=== PATIENT | female | born 1935 | race African-American/Black ===

== ENCOUNTER → 2017-04-20 | Outpatient (CLI) | payer OTHER, MEDICARE | LOC: FIMAGING 04-19 17:30 | PROVIDERS: ATTEND Internal Medicine | DX: Z86.73 Personal history of transient ischemic attack (TIA), and cerebral infarction without residual deficits (principal); D32.0 Benign neoplasm of cerebral meninges ==

== ENCOUNTER → 2017-05-25 | Outpatient (CLI) | payer OTHER, MEDICARE ==
[~2017-05-25] MED LIST: IOPAMIDOL (ISOVUE-300) 100 ML BTL ONE
== END ==
LOC: FIMAGING 10:42
PROVIDERS: ATTEND Internal Medicine
DX: K76.89 Other specified diseases of liver (principal); N28.89 Other specified disorders of kidney and ureter; M51.37 Other intervertebral disc degeneration, lumbosacral region; M46.96 Unspecified inflammatory spondylopathy, lumbar region; Z90.711 Acquired absence of uterus with remaining cervical stump
CPT/HCPCS: 74177; Q9967

== ENCOUNTER 2017-05-30 06:36 | Outpatient (CLI) | payer OTHER, MEDICARE ==
[2017-05-30] MEDS ORDERED: NS 1,000 ML IV SCH (08:15)
[2017-05-30 08:27] LABS: HEMATOCRIT 36.5 % (38.0-47.0)
[2017-05-30 08:28] LABS: INR 1.12 (0.83-1.16); PROTIME(PATIENT) 14.3 SEC (12.0-15.0)
[2017-05-30 08:29] LABS: APTT 31.6 SEC (23.0-38.0)
[2017-05-30] MEDS ORDERED: IOPAMIDOL (ISOVUE 370) 100 ML BTL IV ONE (08:32)
[2017-05-30] MEDS ORDERED: NALOXONE HCL 0.4 MG/ML INJ ONE (08:52)
[2017-05-30] MEDS ORDERED: FLUMAZENIL 0.5 MG/5 ML MDV IVP ONE (08:52)
[2017-05-30] MEDS ORDERED: fentaNYL 100 MCG/2 ML INJ ONE (08:52)
[2017-05-30] MEDS ORDERED: MIDAZOLAM 2 MG/2 ML VIAL ONE (08:52)
[2017-05-30 14:21] VITALS: BP 154/84; RESP 12; O2SAT 96
== END 2017-05-30 14:21 | disposition home or self-care (01) ==
LOC: FIMAGING 06:36
PROVIDERS: ATTEND Psychiatry & Neurology Neurology
PROC: 0F903ZZ Drainage of Liver, Percutaneous Approach (ICD-10-PCS; principal; 2017-05-30 11:28)
DX: K76.89 Other specified diseases of liver (principal); E04.1 Nontoxic single thyroid nodule; R51 Headache; R42 Dizziness and giddiness; R29.818 Other symptoms and signs involving the nervous system
CPT/HCPCS: 10022; 70496; 70498; 88161; J2250; J3010; Q9967; J2310

== ENCOUNTER → 2017-08-06 | Outpatient (CLI) | payer OTHER, MEDICARE | LOC: FIMAGING 13:08 | PROVIDERS: ATTEND Internal Medicine | DX: J98.9 Respiratory disorder, unspecified (principal); R05 Cough; K76.89 Other specified diseases of liver; N28.9 Disorder of kidney and ureter, unspecified ==

== ENCOUNTER 2017-08-08 08:16 | Day surgery (SDC) | payer OTHER, MEDICARE ==
[2017-08-08] MEDS ORDERED: ONDANSETRON 4 MG/2 ML VIAL ONE (08:40)
[2017-08-08] MEDS ORDERED: FLUMAZENIL 0.5 MG/5 ML MDV IVP ONE (08:40)
[2017-08-08] MEDS ORDERED: MIDAZOLAM 2 MG/2 ML VIAL ONE (08:40)
[2017-08-08] MEDS ORDERED: NALOXONE HCL 0.4 MG/ML INJ ONE (08:40)
[2017-08-08] MEDS ORDERED: fentaNYL 100 MCG/2 ML INJ ONE (08:41)
[2017-08-08 09:08] LABS: HEMATOCRIT 29.9 % (38.0-47.0)
[2017-08-08 09:17] LABS: INR 1.15 (0.83-1.16); PROTIME(PATIENT) 14.6 SEC (12.0-15.0)
[2017-08-08 09:18] LABS: APTT 27.5 SEC (23.0-38.0)
[2017-08-08 14:15] VITALS: BP 128/76; RESP 1; O2SAT 96
== END 2017-08-08 15:35 | disposition home or self-care (01) ==
LOC: FIMAGING 08:16
PROVIDERS: ATTEND Internal Medicine
PROC: 0F9030Z Drainage of Liver with Drainage Device, Percutaneous Approach (ICD-10-PCS; principal; 2017-08-08 12:28)
DX: K76.89 Other specified diseases of liver (principal)
CPT/HCPCS: J2250; J2310; J2405; J3010

== ENCOUNTER 2017-08-10 13:43 | Inpatient (IN) | payer OTHER, MEDICARE ==
[2017-08-10] MEDS ORDERED: IOPAMIDOL (ISOVUE 370) 100 ML BTL IV ONE (14:19)
[2017-08-10] MEDS ORDERED: ALTEPLASE 100 MG/100 ML VIAL IV ONE ×3 (14:26→14:50)
--- NOTE | 2017-08-10 14:31 | EDPHY ---
H & P Time Seen by Provider: 08/10/17 13:56 HPI/ROS: CHIEF COMPLAINT: Stroke alert HISTORY OF PRESENT ILLNESS: This is an 81-year-old female presents emergency department with an onset of left-sided facial droop, left arm and left leg weakness as well as left slight and neglect which began around 12 30. 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 Just before 12:30 p.m., the patient fell out of her chair. The fall was unwitnessed. There was no loss of consciousness or direct head trauma. Patient was helped back up and shortly thereafter deficits were noted. Patient does have a history of 2 prior episodes of "mini strokes "according to the family. Of note, she recently had a cyst on her liver drained with ultrasound guidance. This was performed 2 days ago here at [facility]. Patient reports a mild frontal headache. She denies chest pain or shortness of breath. She denies abdominal pain. No reports of fevers, chills, vomiting, diarrhea, urinary complaints, or lightheadedness. REVIEW OF SYSTEMS: Limited secondary to patient's clinical condition. Please see HPI. PAST MEDICAL HISTORY: Liver cyst, TIA's SOCIAL HISTORY: Nonsmoker VITAL SIGNS Reviewed by me. GENERAL: Elderly female, obvious left-sided neglect. Able to answer simple questions. Alert, oriented x3. HEENT: Atraumatic. Eyes: PERRL, rightward gaze preference, no nystagmus. Left-sided facial droop. No icterus. No injection. Mouth: moist mucous membranes. Neck: No meningitis. LUNGS: Clear to auscultation bilaterally, no wheezes, rhonchi or rales. CARDIAC: Slightly irregular, nerves murmurs or gallops. ABDOMEN: Soft, nontender, nondistended, bowel sounds normal. BACK: No CVA tenderness. EXTREMITIES: No trauma. No edema. Left upper extremity is held in a flexed position, flexed at the elbow as well as the wrist. NEURO: Alert and oriented, Motor strength decrease in the left upper extremity and left lower extremity with inability to hold position. Sensation intact to light touch. SKIN: Warm and dry, no rash. PSYCHIATRIC: Normal mentation, no agitation. - Medical/Surgical History Hx Diabetes: No - Social History Smoking Status: Never smoked Constitutional: Initial Vital Signs Temperature (C) 36.7 C 08/10/17 14:40 Heart Rate 80 08/10/17 14:40 Respiratory Rate 14 08/10/17 14:40 Blood Pressure 143/88 H 08/10/17 14:40 O2 Sat (%) 100 08/10/17 14:40 O2 (L/minute) 2 Allergies/Adverse Reactions: clopidogrel [Clopidogrel] Allergy (Unknown, Unverified 01/06/10 20:01) Unknown Penicillins Allergy (Unknown, Unverified 01/06/10 20:01) Unknown prednisone [Prednisone] Allergy (Unknown, Unverified 01/06/10 19:59) Unknown Home Medications: Medication Instructions Recorded Aspirin [Aspirin 81mg (*)] 81 mg PO DAILY 08/10/17 Herbals/Supplements -Info Only 1 ea PO DAILY 08/10/17 Levothyroxine [Synthroid 75 mcg 75 mcg PO DAILY06 08/10/17 (*)] Multivitamins [Multivitamin (*)] 1 each PO DAILY 08/10/17 Medical Decision Making - Diagnostics Imaging Results: Imaging Impressions Head CTA 08/10/17 00:00 Impression: 1. Partially occlusive clot at the distal M1 on the right. This would correlate to the clinical presentation. 2. There is a trickle of flow through the small distal M1 segment amongst the abnormality. Differential is partially occlusive clot or partially recanalizing clot. 3. From a recent liver cyst drainage standpoint, I believe patient is a TPA candidate. Given the appearance of this segment which is very subtle, nonocclusive, and very focal, I do not think interventional radiology will be needed. 4. 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 When the initial source images were looked at live as the images passed through the CT scanner screen during scanning, no large scale abnormalities were seen. This was preliminarily discussed with Dr. Luis verbally at 2:15 PM, so that IV TPA mix can be started. Patient's studies were ordered as emergent, not under patient's name. The source images were therefore not able to be sent to PACS until all of the reformatted images were done, and the entire study was transferred to patient's correct name. This was accomplished at 2:25 PM. This in essence delayed review of source images by 10 minutes. Final report of the above findings was discussed with Dr. Luis, after all the source images and reformats were reviewed on PACS workstation, at 2:[address] Luis and [facility] were on the phone simultaneously, both aware of the above findings. It was agreed upon that patient will get IV TPA, and that transfer was not needed. Neck CTA 08/10/17 00:00 Impression: Normal. Findings and recommendations discussed with Crissy Luis MD at 1415 hour, . Final interpretation was not changed once the source images and reformatted images were reviewed. Final report concurs with initial preliminary interpretation. Note: All stenoses are calculated using NASCET Criteria. Head CT 08/10/17 14:05 Impression: No definite focal acute abnormality. No intracranial hemorrhage. Findings and recommendations discussed with Crissy Luis MD at 2:05 PM, 2016. Final report concurs with initial preliminary interpretation. Chest X-Ray 08/10/17 14:30 Impression: 1. Persistent moderate elevation of the right hemidiaphragm with some adjacent compressive atelectatic change at the right lung base. Imaging: Discussed imaging studies w/ call center manager Radiologist, I viewed and interpreted images myself ED Course/Re-evaluation: 81-year-old female presenting with abrupt onset of left-sided deficits. Stroke alert was called. Patient's course was discussed initially with Dr. Randolph, from [facility]. Patient's head CT was negative for any acute bleed. She has recently had a interventional radiology procedure with ultrasound guidance and drainage of cyst. CTA is were ordered. On return from CT the patient was examined by [facility]. Dr. Randolph recommends tPA. The family is in agreement. CTA is demonstrate a potential small clot the distal vessels, M2-M3 branches that is not occlusive. On discussions between Dr. Randolph and the family, the family would not wish to proceed with intra-arterial thrombectomy or transfer to [facility]. On review of the CTA with Dr. Gamble, recommendation for intravenous tPA was made. TPA was administered via the ED stroke tPA order set. Patient's course was discussed with the hospitalist service, Dr. Lovelace. Dr. Tho Martinez from Neurology is also aware. Differential Diagnosis: Differential diagnoses the patient's presenting complaints was considered including but not limited to intracranial injury, TIA, ischemic cerebrovascular accident, hemorrhagic cerebrovascular accident, hypoglycemia, complex migraine , metastases, tumor, seizure, or electrolyte abnormality Consult/Admit Bed Type: ICU, Dr Lovelace Critical Care Time: Critical care time spent by Dr. Toby rodgers exclusively with this patient was 35 minutes, exclusive of PA time and exclusive of procedures. The organ system at risk was neurologic and I the consult with [facility], consulted with Radiology, administered tPA at the recommendation for of Neurology, and admitted to the ICU under hospitalist service to prevent worsening of the patients condition. Critical care time included obtaining history, performing a physical exam, bedside monitoring of interventions, collecting and interpreting tests and discussion with consultants but not including time spent performing procedures. - Data Points Laboratory Results: Laboratory Results 08/10/17 14:00 08/10/17 14:00 08/10/17 08/10/17 08/10/17 14:00 14:00 14:00 WBC 5.98 10^3/uL 10^3/uL (3.80-9.50) RBC 3.88 10^6/uL L 10^6/uL (4.18-5.33) Hgb 10.5 g/dL L g/dL (12.6-16.3) POC Hgb Hct 33.7 % L % (38.0-47.0) POC Hct MCV 86.9 fL fL (81.5-99.8) MCH 27.1 pg L pg (27.9-34.1) MCHC 31.2 g/dL L g/dL (32.4-36.7) RDW 13.2 % % (11.5-15.2) Plt Count 462 10^3/uL H 10^3/uL (150-400) MPV 9.2 fL fL (8.7-11.7) Neut % (Auto) 69.2 % % (39.3-74.2) Lymph % (Auto) 19.7 % % (15.0-45.0) [place] % (Auto) 8.4 % % (4.5-13.0) Eos % (Auto) 2.2 % % (0.6-7.6) Baso % (Auto) 0.2 % L % (0.3-1.7) Nucleat RBC Rel Count 0.0 % % (0.0-0.2) Absolute Neuts (auto) 4.14 10^3/uL 10^3/uL (1.70-6.50) Absolute Lymphs (auto) 1.18 10^3/uL 10^3/uL (1.00-3.00) Absolute Monos (auto) 0.50 10^3/uL 10^3/uL (0.30-0.80) Absolute Eos (auto) 0.13 10^3/uL 10^3/uL (0.03-0.40) Absolute Basos (auto) 0.01 10^3/uL L 10^3/uL (0.02-0.10) Absolute Nucleated RBC 0.00 10^3/uL 10^3/uL (0-0.01) Immature Gran % 0.3 % % (0.0-1.1) Immature Gran # 0.02 10^3/uL 10^3/uL (0.00-0.10) PT 14.9 SEC SEC (12.0-15.0) INR 1.17 H (0.83-1.16) POC Sodium Sodium 136 mEq/L mEq/L (134-144) POC Potassium Potassium 4.2 mEq/L mEq/L (3.5-5.2) POC Chloride Chloride 102 mEq/L mEq/L (97-110) Carbon Dioxide 24 mEq/l mEq/l (22-31) Anion Gap 10 mEq/L mEq/L (8-16) POC BUN BUN 13 mg/dL mg/dL (7-23) Creatinine 0.7 mg/dL mg/dL (0.6-1.0) POC Creatinine Estimated GFR > 60 Glucose 95 mg/dL mg/dL (70-100) POC Glucose Calcium 9.2 mg/dL mg/dL (8.5-10.4) 08/10/17 13:59 WBC RBC Hgb POC Hgb 11.9 gm/dL L gm/dL (12.6-16.3) Hct POC Hct 35 % L % (38-47) MCV MCH MCHC RDW Plt Count MPV Neut % (Auto) Lymph % (Auto) [place] % (Auto) Eos % (Auto) Baso % (Auto) Nucleat RBC Rel Count Absolute Neuts (auto) Absolute Lymphs (auto) Absolute Monos (auto) Absolute Eos (auto) Absolute Basos (auto) Absolute Nucleated RBC Immature Gran % Immature Gran # PT INR POC Sodium 138 mEq/L mEq/L (134-144) Sodium POC Potassium 3.8 mEq/L mEq/L (3.3-5.0) Potassium POC Chloride 103 mEq/L mEq/L (97-110) Chloride Carbon Dioxide Anion Gap POC BUN 12 mg/dL mg/dL (7-23) BUN Creatinine POC Creatinine 0.7 mg/dL mg/dL (0.6-1.0) Estimated GFR Glucose POC Glucose 101 mg/dL H mg/dL (70-100) Calcium Medications Given: Acetaminophen (Tylenol) 650 mg PO Q4 PRN PRN Reason: Pain, Mild/Fever, Can Take PO Stop: 02/06/18 18:22 Last Admin: 08/10/17 18:35 Dose: 650 mg Discontinued Medications Alteplase, Recombinant (Activase) 4.52348 mg 0.09 mg/kg (4.41664 mg) IV ONCE ONE PRN Reason: Protocol Stop: 08/10/17 14:51 Last Admin: 08/10/17 14:35 Dose: 4.21509 mg Alteplase, Recombinant (Activase) 40.88778 mg 0.81 mg/kg (40.75879 mg) IV ONCE ONE PRN Reason: Protocol Stop: 08/10/17 14:51 Last Admin: 08/10/17 14:35 Dose: 40.80550 mg Sodium Chloride (Ns) 50 mls @ 0 mls/hr IV EDNOW ONE PRN Reason: Per Protocol Stop: 08/10/17 14:51 Last Admin: 08/10/17 15:14 Dose: 50 mls Point of Care Test Results: 08/10/17 13:59 POC Sodium 138 POC Potassium 3.8 POC Chloride 103 POC BUN 12 POC Creatinine 0.7 POC Glucose 101 H Departure - Departure Disposition: [facility] Inpatient Acute Clinical Impression: Acute ischemic stroke, Received intravenous tissue plasminogen activator (t-PA ) in emergency department Condition: Serious
[2017-08-10 14:40] LABS: % IMMATURE GRANULYOCYTES 0.3 % (0.0-1.1); ABSOLUTE IMMATURE GRANULOCYTES 0.02 10^3/uL (0.00-0.10); ADD DIFF? NO; ADD MORPH? NO; ADD SCAN? NO; ATYPICAL LYMPHOCYTE FLAG 10 (0-99); FRAGMENT RBC FLAG 0 (0-99); HEMATOCRIT 33.7 % (38.0-47.0); HEMOGLOBIN 10.5 g/dL (12.6-16.3); LEFT SHIFT FLG 0 (0-99); LIPEMIA HEMOLYSIS FLAG 80 (0-99); MEAN CELL HEMOGLOBIN 27.1 pg (27.9-34.1); MEAN CELL HEMOGLOBIN CONCENTR. 31.2 g/dL (32.4-36.7); MEAN CELL VOLUME 86.9 fL (81.5-99.8); MEAN PLATELET VOLUME 9.2 fL (8.7-11.7); PLATELET CLUMPS FLAG 0 (0-99); PLATELET COUNT 462 10^3/uL (150-400); RED BLOOD CELL COUNT 3.88 10^6/uL (4.18-5.33); RED CELL DISTRIBUTION WIDTH 13.2 % (11.5-15.2)
[2017-08-10 14:47] LABS: ANION GAP 10 mEq/L (8-16); CALCIUM 9.2 mg/dL (8.5-10.4); CARBON DIOXIDE 24 mEq/l (22-31); CHLORIDE 102 mEq/L (97-110); CREATININE 0.7 mg/dL (0.6-1.0); GLOMERULAR FILTRATION RATE > 60; GLUCOSE 95 mg/dL (70-100); INR 1.17 (0.83-1.16); POTASSIUM 4.2 mEq/L (3.5-5.2); PROTIME(PATIENT) 14.9 SEC (12.0-15.0); SODIUM 136 mEq/L (134-144)
[2017-08-10] MEDS ORDERED: NS 50 ML IV ONE (14:50)
[2017-08-10] MEDS ORDERED: ALTEPLASE 1 MG/ML SYR IV ONE (14:50)
--- NOTE | 2017-08-10 14:57 | CPEKG ---
Heart Rate: 81 RR Interval: 741 P-R Interval: 144 QRSD Interval: 80 QT Interval: 412 QTC Interval: 479 P [place]: 65 QRS [place]: 78 T Wave [place]: -15 EKG Severity - BORDERLINE ECG - EKG Impression: SINUS RHYTHM EKG Impression: LOW VOLTAGE IN FRONTAL LEADS EKG Impression: BORDERLINE T ABNORMALITIES, INFERIOR LEADS Electronically Signed By: Jasmina Vela 10-Aug-2017 15:36:37
[2017-08-10] MEDS ORDERED: ONDANSETRON 4 MG/2 ML VIAL IVP PRN (18:23)
[2017-08-10] MEDS ORDERED: NS 1,000 ML IV SCH ×2 (18:30)
[2017-08-10] MEDS: ACETAMINOPHEN 325 MG TAB PO PRN (18:35)
--- NOTE | 2017-08-10 19:02 | GHP ---
[f rep st] HISTORY AND PHYSICAL DATE OF ADMISSION: 08/10/2017 CHIEF COMPLAINT: Left-sided weakness. HISTORY OF PRESENT ILLNESS: The patient is an 81-year-old female, who presented with left-sided weak ness. Symptom onset was 12:30 this afternoon. She was seen by her daughter just shortly prior to th at, and daughter was home with her when she suddenly fell out of a chair and had acute onset of left- sided weakness. Reportedly she did not hit her head but she did hit her lip and now has a little bit of a fat lip. She came to the emergency room within the time window and was noted to have a left-si ded facial droop, left arm and leg weakness, and a left-sided neglect. With consultation with [facility], tPA was administered and she is now being admitted to ICU. She is already showing a pr chris dramatic improvement of her left-sided weakness since tPA administration. She is otherwise with out complaint. PAST MEDICAL HISTORY: 1. Benign liver cyst, status post recurrent aspiration. She most recently had this last Sunday. 2. Transient ischemic attack. 3. Hypothyroidism. 4. Atrial fibrillation incidentally noted just prior to her liver cyst last Sunday. She has not y et been able follow up with Cardiology regarding this and continued on a daily aspirin. PAST SURGICAL HISTORY: Hysterectomy. MEDICATIONS: Please see computer record for full detailed list. ALLERGIES: Plavix, penicillin and prednisone. SOCIAL HISTORY: No smoking. No alcohol. She lives with her daughter. REVIEW OF SYSTEMS: Complete review of systems obtained. Review of systems negative on constitutiona l, HEENT, GI, pulmonary, cardiovascular, , hematology, skin, muscular, endocrine, psych except for positives as noted in HPI. FAMILY HISTORY: Reviewed, noncontributory to presenting complaint. PHYSICAL EXAMINATION: GENERAL: Well-developed, well-nourished female in no acute distress. VITAL S IGNS: Temperature is 36.8, pulse 82, blood pressure 135/80, saturating 100% on 2 L. HEENT: Eyes: N ormal conjunctivae. Pupils react light. ENT: Normal ears and nose. Hearing intact. Normal teeth. Her lip is swollen, right upper, due to trauma when she fell out of the chair. Oropharynx moist. NEC K: Trachea midline. No thyromegaly. CHEST: Normal effort. LUNGS: Clear to auscultation bilaterall y. CARDIOVASCULAR: Regular rhythm. No murmur. No extremity edema. ABDOMEN: Soft, nontender. No h epatosplenomegaly. SKIN: Warm, dry, intact. No rash. MUSCULOSKELETAL: No cyanosis or clubbing. Strength is reduced on the left side but improving since initial exam. She has a significant ongoing left-sided neglect. Her speech is still slurred with an aphasia. Cranial nerves otherwise intact. PSYCH: Alert and oriented x3. Normal affect. Normal judgment and insight. Normal memory. LABORATORY DATA: White count 5.98, hematocrit 33.7, platelets 462. Sodium 136, potassium 4.2, chlor marlene 102, bicarb 24, BUN 13, creatinine 0.7, glucose 95. INR is 1.17. IMAGING: EKG, reviewed by me, my personal interpretation is normal sinus rhythm. Diffuse T-wave inv ersions. Chest x-ray shows a persistent right hemidiaphragm elevation. This case was discussed pers onally with Dr. Crissy Luis of the emergency room, and she [facility]. ASSESSMENT/PLAN: 1. Acute stroke, status post tPA. Her neuro exam is improving. We will continue to monitor her in t intensive care unit with serial neuro checks. Recheck head CT is scheduled for the morning. Will check an echocardiogram and a lipid panel. 2. Atrial fibrillation. It is a likely embolic source of her stroke. Unfortunately, this atrial fi brillation was just recently identified prior to her recent procedure and she had not yet been able t o follow up with Cardiology or primary care regarding anticoagulation. She continues on a daily aspi rin. At this point, we do not see any rapid ventricular response. Eventually she will need anticoag ulation for stroke prevention but first we need to get her through this acute period. 3. Liver cyst, status post recurrent cyst aspiration. This is a benign fluid per previous pathology. Will follow liver function tests. Will monitor for bleeding at the puncture site. CODE STATUS: Full. ADMISSION STATUS: Will admit to inpatient. Greater than 2 midnights will be required given severity on presentation. DEEP VENOUS THROMBOSIS PROPHYLAXIS: She just got tPA, so no pharmacologic prophylaxis at this time. /[id number]/MODL
[2017-08-11 04:23] LABS: % IMMATURE GRANULYOCYTES 0.3 % (0.0-1.1); ABSOLUTE IMMATURE GRANULOCYTES 0.02 10^3/uL (0.00-0.10); ADD DIFF? NO; ADD MORPH? NO; ADD SCAN? NO; ATYPICAL LYMPHOCYTE FLAG 0 (0-99); FRAGMENT RBC FLAG 0 (0-99); HEMATOCRIT 29.3 % (38.0-47.0); HEMOGLOBIN 9.2 g/dL (12.6-16.3); LEFT SHIFT FLG 0 (0-99); LIPEMIA HEMOLYSIS FLAG 80 (0-99); MEAN CELL HEMOGLOBIN 27.2 pg (27.9-34.1); MEAN CELL HEMOGLOBIN CONCENTR. 31.4 g/dL (32.4-36.7); MEAN CELL VOLUME 86.7 fL (81.5-99.8); MEAN PLATELET VOLUME 9.2 fL (8.7-11.7); PLATELET CLUMPS FLAG 0 (0-99); PLATELET COUNT 399 10^3/uL (150-400); RED BLOOD CELL COUNT 3.38 10^6/uL (4.18-5.33); RED CELL DISTRIBUTION WIDTH 13.2 % (11.5-15.2)
[2017-08-11 05:07] LABS: ALANINE AMINOTRANSFERASE 36 IU/L (9-52); ALBUMIN 2.6 g/dL (3.5-5.0); ALKALINE PHOSPHATASE 113 IU/L (38-126); ANION GAP 7 mEq/L (8-16); ASPARTATE AMINOTRANSFERASE 21 IU/L (14-46); BILIRUBIN,TOTAL 0.5 mg/dL (0.1-1.4); CALCIUM 8.4 mg/dL (8.5-10.4); CARBON DIOXIDE 25 mEq/l (22-31); CHLORIDE 108 mEq/L (97-110); CHOLESTEROL 112 mg/dL (140-220); CREATININE 0.7 mg/dL (0.6-1.0); GLOMERULAR FILTRATION RATE > 60; GLUCOSE 76 mg/dL (70-100); HIGH DENSITY LIPOPROTEIN 32 mg/dL (40-85); LDL/HDL RATIO 2.09 RATIO (1.00-3.22); LOW DENSITY LIPOPROTEIN 67 mg/dL (80-100); NON-HIGH DENSITY LIPOPROTEIN 80 mg/dL (90-129); POTASSIUM 3.9 mEq/L (3.5-5.2); SODIUM 140 mEq/L (134-144); TOTAL PROTEIN 5.4 g/dL (6.3-8.2); TRIGLYCERIDE 66 mg/dL (35-135); VERY LOW DENSITY LIPOPROTEINS 13 mg/dL (8-25)
[2017-08-11] MEDS: LEVOTHYROXINE 75 MCG TAB PO SCH (07:28)
[2017-08-11] MEDS ORDERED: FLU VACC QS 2017-18 (3YR+)/PF 0.5 ML SYR (FLUARIX QUAD) IM ONE (09:00)
--- NOTE | 2017-08-11 09:56 | HOSPPROG ---
Hospitalist Progress Note Assessment/Plan: # acute CVA s/p tPA - small, partially occlusive M1 clot seen on CTA head - likely d/t a-fib - echo pending, LDL ok - neuro eval today # small meningioma - outpatient f/u # atrial fib, recent dx during liver cyst aspiration - currently NSR; will defer AC for the time being - consider BB tomorrow # anemia - lower than previous, but no clear hemorrhage - recheck H/H today # benign liver cyst s/p recent aspiration Subjective: some improvement in her physical function overnight Objective: Vital Signs Temp Pulse Resp BP Pulse Ox 36.9 C 78 19 134/76 H 100 08/11/17 07:33 08/11/17 09:00 08/11/17 09:00 08/11/17 09:00 08/11/17 09:00 Laboratory Results 08/11/17 04:15 08/11/17 04:15 08/10/17 08/11/17 08/12/17 05:59 05:59 05:59 Intake Total 200 Output Total 1500 Balance -1300 PT 14.9 SEC (12.0-15.0) 08/10/17 14:00 INR 1.17 (0.83-1.16) H 08/10/17 14:00 - Physical Exam Constitutional: no apparent distress, appears nourished Cardiovascular: regular rate and rhythym, no murmur, rub, or gallop Respiratory: no respiratory distress, no rales or rhonchi, clear to auscultation Gastrointestinal: normoactive bowel sounds, soft, non-tender abdomen, no palpable masses Neurologic: AAOx3, other (mild L leg weakness; L sided visual field deficits) ICD10 Worksheet Patient Problems: Problems Problem Status Onset Acute ischemic stroke Acute Received intravenous tissue plasminogen activator (t-PA) in emergency department Acute
--- NOTE | 2017-08-11 11:09 | ECHO ---
[email or web address] [address] [address] Main: [phone] Fax: Transthoracic Echocardiogram Name: LAZARUS MEZA MR#: [id number] Study Date: 08/11/2017 Study Time: 09:02 AM Date of : 1935 Age: 81 year(s) Height: 157.5 cm (62 in.) Weight: 49.9 kg (110 lb.) BSA: 1.48 m2 Gender: Female Examination: Echo Indication: Ischemic stroke Image Quality: Contrast: Requested by: Johnna Lovelace BP: 134 mmHg/76 mmHg Heart Rate: Rhythm: Indication: Ischemic stroke Procedure Staff Pole Classifier: Radha Blanton Reading Physician: Francisco Logan Requesting Provider: Conclusions: 1)Normal LV size and systolic function with a LVEF of 60% and normal wall motions. 2)Mild concentric LVH with mild diastolic dysfunction. 3)Trivial MR without MV prolapse. 4)Trivial TR noted. Unable to accurately assess PA pressures. 5)Intra-atrial septal aneursym with late positive IV bubble study consistent with possible PFO. note: consider AR if clinically concerned about PFO. Measurements: Chambers Valvular Assessment AV/MV Valvular Assessment TV/PV Normal Normal Normal Name Value Range Name Value Range Name Value Range Ao Latia (MM): 3.6 cm (2.2 cm-3.7 MV E Vmax: 0.56 m/s ( - ) cm) MV A Vmax: 0.74 m/s ( - ) IVSd (2D): 0.8 cm (0.6 cm-1.1 MV E/A: 0.76 ( - ) cm) LVDd (2D): 4.1 cm (3.9 cm-5.3 cm) LVDs (2D): 2.5 cm (2.1 cm-4 cm) LVPWd (2D): 0.7 cm ( - ) LVEF (MOD4): 60 % (>=55 %) Continued Measurements: Chambers Valvular Assessment AV/MV Name Value Name Value LADs: 3.2 cm MV E/E' Septal: 7.20 LADs Lon.3 cm MV E/E' Lateral: 7.90 LA Area: 15.1 cm2 Patient: LAZARUS MEZA Study Date: 08/11/2017 Page 1 of 2 09:02 AM LA Volume: 42 ml AR Vmax: 1.10 cm/s LA Volume Index: 28.4 ml/m2 Findings: Left Ventricle: Normal size left ventricle. Mild concentric LV hypertrophy. Normal global systolic LV function. EF is 60 %. Right Ventricle: Normal size right ventricle. 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 The left atrium is mildly dilated. An agitated saline study was performed and was positive for intracardiac shunting. Right Atrium: The right atrium is normal in size. Mitral Valve: The mitral valve is normal in appearance. Trivial to mild mitral regurgitation. Aortic Valve: The aortic valve is tri-leaflet. Tricuspid Valve: The tricuspid valve appears normal. Trivial tricuspid valve regurgitation. Pulmonic Valve: The pulmonic valve is normal in appearance. (No Signature Object) Patient: LAZARUS MEZA Study Date: 08/11/2017 Page 2 of 2 09:02 AM [id number]
[2017-08-11 15:09] LABS: HEMATOCRIT 32.5 % (38.0-47.0); HEMOGLOBIN 9.9 g/dL (12.6-16.3)
--- NOTE | 2017-08-11 15:09 | NEUROPROG ---
Assessment: HOSPITAL NEUROLOGY CONSULT REQUESTING: Johnna Lovelace MD REASON: stroke HPI: This is a pleasant 81 year old right-handed woman with a history of HTN, recently diagnosed afib (quite recent, had not established with cardiology for anticoagulation yet), benign liver cyst s/p recent biopsy, remote TIA who presented to our ED yesterday due to abrupt onset left-sided weakness after a fall. Patient was with her daughter and at 12:30 the daughter heard a noise. Patient had fallen out of a chair and was noted to have left-sided weakness. Patient witnessed normal just prior to the event. Was emergently transported to the ED. She was found to have left-sided deficits including left-sided weakness, left-sided neglect and left homonymous hemianopia. CT head wo was without acute findings. CTA head/neck showed a partially recanalized clot at the right distal M1 of the MCA. tPA was administered at 1450. Thrombectomy was discussed with family, but they declined. Patient had rather rapid improvement in some of her symptoms with tPA infusion. She was admitted to the ICU for post-tPA care. Today, patient denies any weakness of sensation loss. Son is at bedside and is still noting some left hemineglect. No speech/language disturbance noted. She denies CASTILLO. No palpitations, SOB, CP. No dizziness. No ataxia. She denies any visual difficulty. ROS: As per the HPI, otherwise a complete 12 point ROS was performed and is negative ALLERGIES AND MEDS: As recorded in the EMR - reviewed and reconciled PFSH: As per the intake H&P by Dr. Lovelace from yesterday EXAM: VS reviewed in EMR. SBPs 110s - 140s last 24h without intervention GEN: thin elderly woman laying in NAD HEENT: NCAT, sclera anicteric, conjunctiva not injected, MMM, oropharynx clear, no scalp tenderness NECK: supple, nontender, no meningismus CV: RRR s1 s2 wo m/r/c/g. Carotid pulses 2+ wo bruit NEURO: MS: awake, alert, oriented to all spheres. Speech nondysarthric. No language disturbance. Follows commands. Left-sided neglect noted. Recent/remote memory grossly intact. Mood euthymic. Good fund of knowledge. CN: pupils 3mm round and reactive. Intolerant of fundoscopy. Left homonymous hemianopia. Primary gaze centered. Full ocular motility. Facial sensation preserved. Face symmetric. Hearing grossly intact to finger rub. Palatoglossal movements intact. Shoulder shrug and head turn strong. MOTOR: normal bulk/tone. No adventitial movements. Full power throughout. No drift. SENSORY: intact LT/PP throughout. She extinguishes the left side on double simultaneous stim. COORD: no ataxia FN/HS. Jessica labored. REFLEX: plantars equivocal. No clonus. Ankle jerks 2/4, patellars 4/4, BUE groups 3/4. GAIT: deferred DATA REVIEW: Labs reviewed in EMR LDL 67 A1c pending TTE - atrial septal aneurysm with PFO, mildly dilated LA, no mass/thrombus PERSONALLY INTERPRETED RESULTS AND DATA: CT head wo 08/10 - no acute findings CT head wo repeat on 08/10 - evolving hypodensity in the right temporal, parietal and occipital lobes, cortically based IMPRESSION AND RECOMMENDATIONS: // ACUTE ISCHEMIC STROKE // AFIB // HTN // HX TIAs Patient with acute ischemic stroke of the nondominant hemisphere, s/p tPA on . Residual deficits of left-sided neglect and left homonymous hemianopia. Large degree of ischemic change on the early repeat CT yesterday. CTA did confirm right distal M1 clot. Mechanism is certainly cardioembolic. She has known afib, but had not been started on anticoagulation. - cont ICU monitoring per post-tPA protocol - would keep in ICU after post-24h tPA period given large degree of infarct on the early repeat CT head - repeat CT at 24h post-tPA today - holding antiplatelet and DVT chemoprophylaxis until repeat CT head confirms no bleeding - permissive HTN - intervene for BP > 180/105 - introduce low-dose statin for pleiotropic effect of endothelial stabilization - LDL at goal < 70 - A1c goal < 6.5 - will need MRI brain wo tomorrow - PT/OT/COURT RECORDER evals - stroke education - SCDs, GI prophylaxis per primary team - maintain normothermia and euvolemia. Avoid hypoglycemia. Patient critically ill with acute ischemic stroke and is within 24h post-tPA window. High risk of clinical deterioration with further risk of brain dysfunction. 60 mins CC time. Case discussed with Dr. Byrd. Objective: Vital Signs Temp Pulse Resp BP Pulse Ox 36.9 C 91 16 132/73 H 100 08/11/17 07:33 08/11/17 14:00 08/11/17 14:00 08/11/17 14:00 08/11/17 14:00 Laboratory Results 08/11/17 04:15 08/10/17 08/11/17 08/12/17 05:59 05:59 05:59 Intake Total 200 Output Total 1500 Balance -1300 PT 14.9 SEC (12.0-15.0) 08/10/17 14:00 INR 1.17 (0.83-1.16) H 08/10/17 14:00 Allergies/Adverse Reactions: clopidogrel [Clopidogrel] Allergy (Unknown, Unverified 01/06/10 20:01) Unknown Penicillins Allergy (Unknown, Unverified 01/06/10 20:01) Unknown prednisone [Prednisone] Allergy (Unknown, Unverified 01/06/10 19:59) Unknown
--- NOTE | 2017-08-11 15:10 | GCON ---
[f rep st] CONSULTATION CRITICAL CARE CONSULTATION DATE OF CONSULTATION: 08/11/2017 HISTORY OF PRESENT ILLNESS: The patient is an 81-year-old female, who apparently has a history of tr ansient ischemic attack in the past, who had sudden onset of complete left-sided weakness. She lives with her daughter, who heard a loud sound and found her mother had suddenly fallen out of a chair an d had significant left-sided weakness, as well as a left-sided neglect in her gaze. She was brought to the emergency room. A left-sided facial droop was noted, as well as left upper and left lower ext remity weakness. She had a CT scan of her head that showed no significant bleeding. [facility] was consulted, and tPA was administered. She has had rapid improvement of her symptoms, with tarsha r complete resolution since her arrival last night. REVIEW OF SYSTEMS: Otherwise negative. PAST MEDICAL HISTORY: 1. Benign liver cyst that has been aspirated in the past including a week ago, when she was noted to have atrial fibrillation. 2. Transient ischemic attack. 3. Hypothyroidism. 4. Atrial fibrillation recently noted but has not started on anticoagulation for this just yet. PAST SURGICAL HISTORY: Includes hysterectomy. ALLERGIES: Include Plavix, penicillin, and prednisone. SOCIAL HISTORY: She is a nonsmoker. No alcohol or IV drug use. FAMILY HISTORY: Noncontributory at this time. MEDICATIONS: At this time, include simply Tylenol, Synthroid, Zofran. PHYSICAL EXAM: VITAL SIGNS: She was normotensive at 117/69, heart rate of 81, respirations 17, oxyg en saturation 95% on room air. GENERAL: She was awake and alert, in no apparent distress, and was j ust finishing up her echocardiogram. She was thin but not cachectic. Alert and oriented x3. Spoke in full sentences without using accessory muscles for breathing. HEENT: Pupils equally round and re active to light. Nonicteric and noninjected. Mucous membranes moist without erythema or exudate. N MATTHEW: Was supple, without adenopathy or jugular vein distention. LUNGS: Breath sounds were clear to auscultation bilaterally without wheezes, rubs, or rales. CARDIAC: Heart was irregular, but I coul d not detect any obvious murmurs. ABDOMEN: Soft, nontender, nondistended without hepatosplenomegaly . EXTREMITIES: Show no clubbing, cyanosis, or edema. NEUROLOGIC: Nonfocal, including motor, crani al nerves, and deep tendon reflexes. SKIN: Was warm and dry, without evidence of rash. OBJECTIVE DATA: Includes that described above. In addition, her white count was normal at 5.8, william tocrit 29, platelets of 399. Basic metabolic panel was unremarkable. Liver function tests were norm al. Albumin was 2.6. ASSESSMENT AND PLAN: Acute stroke. Symptomatically fits quite well, and has had a great response fr om tissue plasminogen activator. I would suspect this is likely embolic in origin, though no immedia te thrombosis was noted, nor was there a positive bubble study. Otherwise, we will continue with her neurological evaluation. Physical therapy and occupational therapy have seen her. She has already passed a swallow evaluation. I suspect her hospital stay will be relatively short. /[id number]/MODL
--- NOTE | 2017-08-11 17:55 | ASMTCASEMG ---
Living Arrangements What is your living Answers: With Child(moreno) arrangement? Who do you live with? Discharge Plan Comments Coordination Status Comments Notes: Reviewed chart re: d/c poc, pt's progress. Per rounds/ MD notes, pt admitted w/ significant R sided CVA. Pt consulted on by [facility], tPA initiated w/ positive results. PT/OT evals pending. Pt lives w/ her dghtr. Per MD notes, pt doing well and will likely be ready for d/c soon. Discharge needs remain TBD. CM will cont to follow. Date Signed: 08/11/2017 05:54 PM Electronically Signed By:Tracy Neville RN
[2017-08-12 05:40] LABS: % IMMATURE GRANULYOCYTES 0.3 % (0.0-1.1); ABSOLUTE IMMATURE GRANULOCYTES 0.02 10^3/uL (0.00-0.10); ADD DIFF? NO; ADD MORPH? NO; ADD SCAN? NO; ATYPICAL LYMPHOCYTE FLAG 0 (0-99); FRAGMENT RBC FLAG 0 (0-99); HEMATOCRIT 32.1 % (38.0-47.0); HEMOGLOBIN 9.9 g/dL (12.6-16.3); LEFT SHIFT FLG 0 (0-99); LIPEMIA HEMOLYSIS FLAG 80 (0-99); MEAN CELL HEMOGLOBIN 26.8 pg (27.9-34.1); MEAN CELL HEMOGLOBIN CONCENTR. 30.8 g/dL (32.4-36.7); MEAN PLATELET VOLUME 9.1 fL (8.7-11.7); PLATELET CLUMPS FLAG 0 (0-99); PLATELET COUNT 375 10^3/uL (150-400); RED BLOOD CELL COUNT 3.69 10^6/uL (4.18-5.33); RED CELL DISTRIBUTION WIDTH 13.2 % (11.5-15.2)
[2017-08-12 06:02] LABS: ANION GAP 11 mEq/L (8-16); CALCIUM 8.9 mg/dL (8.5-10.4); CARBON DIOXIDE 22 mEq/l (22-31); CHLORIDE 105 mEq/L (97-110); CREATININE 0.7 mg/dL (0.6-1.0); GLOMERULAR FILTRATION RATE > 60; GLUCOSE 66 mg/dL (70-100); POTASSIUM 4.1 mEq/L (3.5-5.2); SODIUM 138 mEq/L (134-144)
[2017-08-12] MEDS: LEVOTHYROXINE 75 MCG TAB PO SCH (06:18)
--- NOTE | 2017-08-12 10:08 | HOSPPROG ---
Hospitalist Progress Note Assessment/Plan: # acute CVA s/p tPA - small, partially occlusive M1 clot seen on CTA head - ASD and atrial septal aneurysm on echo - likely d/t a-fib - LDL ok - asa/AC when ok per neuro # small meningioma - outpatient f/u # atrial fib, recent dx during liver cyst aspiration - currently NSR; will defer AC for the time being - consider BB when ok'd by neurology from CVA perspective # anemia - stable # benign liver cyst s/p recent aspiration Subjective: no acute changes overnight; still moving and thinking slowly Objective: Vital Signs Temp Pulse Resp BP Pulse Ox 36.6 C 74 18 123/64 H 94 08/12/17 08:00 08/12/17 10:00 08/12/17 10:00 08/12/17 10:00 08/12/17 10:00 Laboratory Results 08/12/17 05:20 08/12/17 05:20 08/11/17 08/12/17 08/13/17 05:59 05:59 05:59 Intake Total 200 50 Output Total 1500 Balance -1300 50 PT 14.9 SEC (12.0-15.0) 08/10/17 14:00 INR 1.17 (0.83-1.16) H 08/10/17 14:00 CTH reviewed high risk given the size of infarct - Physical Exam Constitutional: no apparent distress, appears nourished Cardiovascular: regular rate and rhythym, no murmur, rub, or gallop Respiratory: no respiratory distress, no rales or rhonchi, clear to auscultation Gastrointestinal: normoactive bowel sounds, soft, non-tender abdomen Neurologic: AAOx3, other (L sided visual field cuts) ICD10 Worksheet Patient Problems: Problems Problem Status Onset Acute ischemic stroke Acute Received intravenous tissue plasminogen activator (t-PA) in emergency department Acute
--- NOTE | 2017-08-12 10:48 | PDINTPN ---
Parcel Post Clerk Progress Note Assessment/Plan: Assessment/plan: 81 F with new diagnoisis of afib but not yet on anticoagulation, presented 08/10 with acute left hemiparesis and left hemianopsia. Head CT without bleed so treated with tPA and rapid resolution of symptoms. Repeat imaging shows large right sided infarct from temporal to occipital lobe. * CVA likely embolic with large infarct. Clinically improved and nearly normal but clearly at high risk for edema. MRI pending at the moment. Passed swallow eval and ambulating in the [facility]ner. Normal BP. * Afib by history, NSR with frequent PACs here. May eventually need cardiology outpatient followup. Subjective: Feels well. No complaints. Objective: Vital Signs Temp Pulse Resp BP Pulse Ox 36.6 C 74 18 123/64 H 94 08/12/17 08:00 08/12/17 10:00 08/12/17 10:00 08/12/17 10:00 08/12/17 10:00 Laboratory Results 08/12/17 05:20 08/12/17 05:20 08/11/17 08/12/17 08/13/17 05:59 05:59 05:59 Intake Total 200 50 Output Total 1500 Balance -1300 50 PT 14.9 SEC (12.0-15.0) 08/10/17 14:00 INR 1.17 (0.83-1.16) H 08/10/17 14:00 Physical Exam - Physical Exam General Appearance: alert, no apparent distress EENT: PERRL/EOMI, other (?ecchhymosis around left eye) Neck: supple, No carotid bruit Respiratory: lungs clear, normal breath sounds, No respiratory distress Cardiac/Chest: regular rate, rhythm, No edema Abdomen: normal bowel sounds, non-tender, soft, No distended Skin: normal color, warm/dry Lymphatic: no adenopathy Extremities: No pedal edema Neuro/Psych: alert, normal mood/affect, oriented x 3 ICD10 Worksheet Patient Problems: Problems Problem Status Onset Acute ischemic stroke Acute Received intravenous tissue plasminogen activator (t-PA) in emergency department Acute
--- NOTE | 2017-08-12 14:15 | NEUROPROG ---
Assessment: BACKGROUND: This is a pleasant 81 year old right-handed woman with a history of HTN, recently diagnosed afib (quite recent, had not established with cardiology for anticoagulation yet), benign liver cyst s/p recent biopsy, remote TIA who presented to our ED yesterday due to abrupt onset left-sided weakness after a fall. Patient was with her daughter and at 12:30 the daughter heard a noise. Patient had fallen out of a chair and was noted to have left-sided weakness. Patient witnessed normal just prior to the event. Was emergently transported to the ED. She was found to have left-sided deficits including left-sided weakness, left-sided neglect and left homonymous hemianopia. CT head wo was without acute findings. CTA head/neck showed a partially recanalized clot at the right distal M1 of the MCA. tPA was administered at 1450. Thrombectomy was discussed with family, but they declined. Patient had rather rapid improvement in some of her symptoms with tPA infusion. She was admitted to the ICU for post-tPA care. Today, patient denies any weakness of sensation loss. Son is at bedside and is still noting some left hemineglect. No speech/language disturbance noted. She denies CASTILLO. No palpitations, SOB, CP. No dizziness. No ataxia. She denies any visual difficulty. INTERVAL HISTORY: Continues with left-sided neglect and left homonymous hemianopia. No new symptoms. No CASTILLO, nausea/vomiting, diminished LOC. She is in good spirits. Family at bedside. EXAM: VS reviewed in EMR. SBPs 110s - 150s last 24h without intervention NIHSS 3 (-2 VF, -1 inattention) Exam pertinent for left homonymous hemianopia and extinguishing the left side to double simultaneous stimulation. DATA REVIEW: Labs reviewed in EMR LDL 67 A1c pending TTE - atrial septal aneurysm with PFO, mildly dilated LA, no mass/thrombus PERSONALLY INTERPRETED RESULTS AND DATA: CT head wo 08/10 - no acute findings CT head wo repeat on 08/10 - evolving hypodensity in the right temporal, parietal and occipital lobes, cortically based CT head wo repeat 08/11 24 post-tPA - stable hypodensity in the right temporal, parietal and occipital lobes, cortically based - no hemorrhage IMPRESSION AND RECOMMENDATIONS: // ACUTE ISCHEMIC STROKE // AFIB // HTN // HX TIAs Patient with acute ischemic stroke of the nondominant hemisphere, s/p tPA on . Residual deficits of left-sided neglect and left homonymous hemianopia. Large degree of ischemic change on the early repeat CT yesterday. CTA did confirm right distal M1 clot. Mechanism is certainly cardioembolic. She has known afib, but had not been started on anticoagulation. - cont ICU monitoring - CT indicates large volume of ischemic burden - will need to further stratify for risk of malignant cerebral edema based on MRI stroke volumetrics - would keep in ICU given degree of infarct on the early repeat CT head, as noted above - start ASA 325mg daily today - permissive HTN - intervene for BP > 180/105 - introduce low-dose statin for pleiotropic effect of endothelial stabilization - LDL at goal < 70 - A1c goal < 6.5 - MRI brain wo today - PT/OT/ARCHITECT MARINE evals - stroke education - SCDs, OK to start DVT chemoprophylaxis today - GI prophylaxis per primary team - maintain normothermia and euvolemia. Avoid hypoglycemia. Patient critically ill with acute ischemic stroke post-tPA with CT demonstrated large volume of ischemic burden. High risk of clinical deterioration with further risk of brain dysfunction. 45 mins CC time. Case discussed with Dr. Byrd. Objective: Vital Signs Temp Pulse Resp BP Pulse Ox 36.6 C 73 16 127/71 H 97 08/12/17 12:00 08/12/17 12:00 08/12/17 12:00 08/12/17 12:00 08/12/17 12:00 Laboratory Results 08/12/17 05:20 08/12/17 05:20 08/11/17 08/12/17 08/13/17 05:59 05:59 05:59 Intake Total 200 50 Output Total 1500 Balance -1300 50 PT 14.9 SEC (12.0-15.0) 08/10/17 14:00 INR 1.17 (0.83-1.16) H 08/10/17 14:00 Allergies/Adverse Reactions: clopidogrel [Clopidogrel] Allergy (Unknown, Unverified 01/06/10 20:01) Unknown Penicillins Allergy (Unknown, Unverified 01/06/10 20:01) Unknown prednisone [Prednisone] Allergy (Unknown, Unverified 01/06/10 19:59) Unknown
[2017-08-12] MEDS: ASPIRIN EC 325 MG TAB PO SCH (14:32)
[2017-08-12] MEDS: ENOXAPARIN 40 MG/0.4 ML SYR SC SCH (14:32)
[2017-08-12] MEDS ORDERED: BISACODYL 10 MG SUPP PR PRN (19:24)
[2017-08-12] MEDS ORDERED: LACTULOSE 20 GM/30 ML UDCUP PO PRN (19:24)
[2017-08-12] MEDS ORDERED: POLYETHYLENE GLYCOL 3350 17 GM PKT PO PRN (19:24)
[2017-08-12] MEDS ORDERED: MAGNESIUM HYDROXIDE 30 ML UDCUP PO PRN (19:24)
[2017-08-12] MEDS: SENNOSIDES/DOCUSATE SODIUM TAB PO SCH (21:39)
[2017-08-13 01:18] LABS: HEMOGLOBIN A1C 5.7 % (4.0-6.0)
[2017-08-13] MEDS: LEVOTHYROXINE 75 MCG TAB PO SCH (05:52)
[2017-08-13 06:06] LABS: ANION GAP 10 mEq/L (8-16); CARBON DIOXIDE 23 mEq/l (22-31); CHLORIDE 104 mEq/L (97-110); CREATININE 0.7 mg/dL (0.6-1.0); GLOMERULAR FILTRATION RATE > 60; GLUCOSE 83 mg/dL (70-100); POTASSIUM 4.4 mEq/L (3.5-5.2); SODIUM 137 mEq/L (134-144)
[2017-08-13] MEDS: ASPIRIN EC 325 MG TAB PO SCH (07:56)
[2017-08-13] MEDS: ENOXAPARIN 40 MG/0.4 ML SYR SC SCH (07:56)
[2017-08-13] MEDS: SENNOSIDES/DOCUSATE SODIUM TAB PO SCH ×2 (07:56→22:17)
--- NOTE | 2017-08-13 09:12 | PDINTPN ---
Installment Dealer Progress Note Assessment/Plan: Assessment/plan: * CVA likely embolic with large infarct. Status post tPA Clinically improved and nearly normal but clearly at high risk for edema. MRI pending at the moment. Passed swallow eval and ambulating in the [facility]ner. Normal BP. * Afib by history, NSR with frequent PACs here. May eventually need cardiology outpatient followup. * Neuro-minimal residual left field defect. * Disposition-likely okay for floor Subjective: Sitting up in chair. Good appetite. Denies any pain. In good spirits Objective: Vital Signs Temp Pulse Resp BP Pulse Ox 36.8 C 97 16 111/86 H 97 08/13/17 05:45 08/13/17 08:00 08/13/17 08:00 08/13/17 08:00 08/13/17 08:00 Laboratory Results 08/12/17 05:20 08/13/17 05:30 08/12/17 08/13/17 08/14/17 05:59 05:59 05:59 Intake Total 50 145 Balance 50 145 PT 14.9 SEC (12.0-15.0) 08/10/17 14:00 INR 1.17 (0.83-1.16) H 08/10/17 14:00 Physical Exam - Physical Exam General Appearance: WD/WN, alert, no apparent distress EENT: PERRL/EOMI, normal ENT inspection, pharynx normal, TMs normal Neck: non-tender, full range of motion, supple, normal inspection Respiratory: chest non-tender, lungs clear, normal breath sounds Cardiac/Chest: regular rate, rhythm, systolic murmur, irregularly irregular Abdomen: normal bowel sounds, non-tender, soft Pelvic Exam: deferred Rectal: deferred Skin: normal color, warm/dry Extremities: normal range of motion, non-tender, normal inspection, normal capillary refill Neuro/Psych: no motor/sensory deficits, alert, normal mood/affect, oriented x 3 ICD10 Worksheet Patient Problems: Problems Problem Status Onset Acute ischemic stroke Acute Received intravenous tissue plasminogen activator (t-PA) in emergency department Acute
--- NOTE | 2017-08-13 09:45 | NEUROPROG ---
Assessment: 1. Atrial fibrillation 2. Large right MCA infarct This is my 1st day in caring for the patient. I reviewed her extensive medical history and neuro imaging thus far. In summary, she likely had a cardioembolic right M1 infarct. A large territory of the right middle cerebral artery contains infarct based on the MRI imaging. She will continue anti-platelet therapy for now. Recommendations: 1. Please keep this patient in the ICU for frequent neuro checks. The risk of edema peaks between days 3 and 5 2. Recommend waiting 14 days after stroke onset to initiate oral anticoagulation 3. Please continue PT OT and speech therapies as indicated Will follow up on the above. Subjective: No new events Objective: Vital Signs Temp Pulse Resp BP Pulse Ox 36.8 C 97 16 111/86 H 97 08/13/17 05:45 08/13/17 08:00 08/13/17 08:00 08/13/17 08:00 08/13/17 08:00 Laboratory Results 08/12/17 05:20 08/13/17 05:30 08/12/17 08/13/17 08/14/17 05:59 05:59 05:59 Intake Total 50 145 Balance 50 145 PT 14.9 SEC (12.0-15.0) 08/10/17 14:00 INR 1.17 (0.83-1.16) H 08/10/17 14:00 Patient is awake alert She has left-sided neglect and mild weakness Allergies/Adverse Reactions: clopidogrel [Clopidogrel] Allergy (Unknown, Unverified 01/06/10 20:01) Unknown Penicillins Allergy (Unknown, Unverified 01/06/10 20:01) Unknown prednisone [Prednisone] Allergy (Unknown, Unverified 01/06/10 19:59) Unknown
--- NOTE | 2017-08-13 13:49 | HOSPPROG ---
Hospitalist Progress Note Assessment/Plan: 81 yo F hx of a fib p/w acute CVA # acute CVA: R MCA infarct now s/p TPA with significant improvement in her sxs, has minor residual left sided neglect. On further evaluation does have ASD and atrial septal aneurysm but cva presumably 2/2 a fib. Neurology following and recommending she remain IP for frequent neuro checks through today as risk of edema remains high through day 5 post cva. continue antiplatelet, holding AC for at least 14 days post cva. Continue asa/statin. # paroxysmal afib: on personal review of ecg now noted to be in NSR. Will need to start AC but as above plan will be for at least 14 days post cva. # liver cyst: recent biopsy and noted to be benign # anemia: has been stable, would recommend outpatient colonoscopy if has not had one yet # hypothyroid: continue levothyroxine # dispo: IP status, remains high risk for cerebral edema so will continue to monitor in ICU for one more day Patient new to my care. Old records reviewed and summarized as above. Care plan reviewed with Dr. Álvarez on multidisciplinary team rounds. Subjective: no significant overnight events, patient has no complaints this am, feeling well Objective: Vital Signs Temp Pulse Resp BP Pulse Ox 36.8 C 72 19 119/72 98 08/13/17 05:45 08/13/17 12:00 08/13/17 12:00 08/13/17 12:00 08/13/17 12:00 Laboratory Results 08/12/17 05:20 08/13/17 05:30 08/12/17 08/13/17 08/14/17 05:59 05:59 05:59 Intake Total 50 145 Balance 50 145 PT 14.9 SEC (12.0-15.0) 08/10/17 14:00 INR 1.17 (0.83-1.16) H 08/10/17 14:00 awake alert nad anicteric op clear rrr no mrg cta b soft nt nd no cce warm dry well perfused oriented appropriate ICD10 Worksheet Patient Problems: Problems Problem Status Onset Acute ischemic stroke Acute Received intravenous tissue plasminogen activator (t-PA) in emergency department Acute
[2017-08-13] MEDS: ATORVASTATIN CALCIUM 40 MG TAB PO SCH (15:26)
--- NOTE | 2017-08-13 17:45 | ASMTCMCOM ---
CM Note SRUTHI Note Notes: Patient asleep, CM spoke to her daughter. Daughter semi retired and at home to care for her mother. Patient has two other children in the [place] area. Patient had a large stroke but doing remarkedly well with therapy. Gave daughter the Acute Rehab Folder and explained what they do and what she would need to bring: clothing, personal items, other activities when not in therapy. Daughter to contact Kaye Honeycutt for a visit. Date Signed: 08/13/2017 05:44 PM Electronically Signed By:Seema Handley LCSW
[2017-08-13] MEDS: ACETAMINOPHEN 325 MG TAB PO PRN (22:18)
[2017-08-14 05:04] VITALS: RESP 16
[2017-08-14] MEDS: LEVOTHYROXINE 75 MCG TAB PO SCH (05:33)
[2017-08-14] MEDS: SENNOSIDES/DOCUSATE SODIUM TAB PO SCH (08:40)
[2017-08-14] MEDS: ENOXAPARIN 40 MG/0.4 ML SYR SC SCH (08:41)
[2017-08-14] MEDS: ASPIRIN EC 325 MG TAB PO SCH (08:41)
[2017-08-14] MEDS: ATORVASTATIN CALCIUM 40 MG TAB PO SCH (08:42)
--- NOTE | 2017-08-14 09:37 | NEUROPROG ---
Assessment: 1. Atrial fibrillation 2. Large right MCA infarct In summary, she likely had a cardioembolic right M1 infarct. A large territory of the right middle cerebral artery contains infarct based on the MRI imaging. She will continue aspirin and statin therapy for now. Despite the large area of infarct, the patient has done remarkably well in terms of her neurologic recovery status post tPA. The patient is awake alert, coherent and ambulatory. She does have some neurologic deficits which will be described below. There has been no evidence of malignant cerebral edema post infarction based on her imaging and clinical course. Today is day 5 post stroke, therefore, she will likely do well from a swelling standpoint. Recommendations: 1. Recommend waiting 2 weeks (can start OAC on August 24, 2017) after stroke onset to initiate oral anticoagulation 2. The patient will likely discharge to inpatient rehabilitation today. 3. Follow up with her primary neurologist, Dr. Martinez, 2-4 weeks after discharge from inpatient rehabilitation. 4. Certainly, if there is any acute deterioration at inpatient rehabilitation - plan would be to transfer back to our emergency department for stat head CT without contrast. We will follow-up p.r.n. Please do not hesitate to call with any questions or changes in neurologic status with this very pleasant patient. Subjective: Continues to improve Objective: Vital Signs Temp Pulse Resp BP Pulse Ox 36.5 C 73 16 102/61 96 08/14/17 07:57 08/14/17 07:57 08/14/17 07:57 08/14/17 07:57 08/14/17 07:57 Laboratory Results 08/12/17 05:20 08/13/17 05:30 08/13/17 08/14/17 08/15/17 05:59 05:59 05:59 Intake Total 145 700 Output Total 550 Balance 145 150 PT 14.9 SEC (12.0-15.0) 08/10/17 14:00 INR 1.17 (0.83-1.16) H 08/10/17 14:00 Patient is awake and alert Fairly lucid during conversation Patient has a left hemifield visual cut She has sensory extinction on the left (mild neglect) There is some mild left hemiparesis Allergies/Adverse Reactions: clopidogrel [Clopidogrel] Allergy (Unknown, Unverified 01/06/10 20:01) Unknown Penicillins Allergy (Unknown, Unverified 01/06/10 20:01) Unknown prednisone [Prednisone] Allergy (Unknown, Unverified 01/06/10 19:59) Unknown
--- NOTE | 2017-08-14 09:40 | PDIAF ---
- Diagnosis Code Status: Full Code - Medication Management Discharge Medications: Medications to Continue on Transfer Herbals/Supplements -Info Only 1 ea PO DAILY 08/10/17 [Last Taken 08/09/17] Levothyroxine [Synthroid 75 mcg (*)] 75 mcg PO DAILY06 08/10/17 [Last Taken ] Multivitamins [Multivitamin (*)] 1 each PO DAILY 08/10/17 [Last Taken 08/10/17] Aspirin EC [Aspirin EC 325 mg (*)] 325 mg PO DAILY tab 08/14/17 [Last Taken Unknown] Atorvastatin Calcium [Lipitor 40 mg (*)] 40 mg PO DAILY tab 08/14/17 [Last Taken Unknown] Polyethylene Glycol 3350 [Miralax 17 gm (*)] 17 gm PO DAILY PRN pkt 08/14/17 [ Last Taken Unknown] Sennosides/Docusate Sodium [Senokot-S] 1 - 2 tab PO BID tab 08/14/17 [Last Taken Unknown] Discharge Medications: Refer to the Discharge Home Medication list for PRN reason. - Orders Services needed: Registered Nurse, Certified Printer Assistant, Physical Therapy, Occupational Therapy Diet Texture: Regular Texture Diet, Thin Liquids, Meds Crushed in Puree Additional: Start warfarin 5mg daily for anticoagulation on 08/25/17 with goal INR of 2-3. Please have MD, pharmacy or PCP adjust dose as needed. - Labs/Radiology PT/INR Date: 08/25/17 (q3 days for goal INR of 2-3) - Follow Up Care Current Providers and Referrals: Calrissa Jaime MD [Primary Care Provider] - As per Instructions Jem Gonzalez MD [Medical Doctor] - follow up in 1 week
--- NOTE | 2017-08-14 09:43 | PDDCSUM ---
Discharge Summary Discharge Summary: Dates of service 08/10-08/14/17 consultations: neurology, pulmonary Procedures performed: echo, brain mri, head/neck cta Hospital course by problem: # acute CVA: R MCA infarct now s/p TPA with significant improvement in her sxs, has minor residual left sided neglect. On further evaluation does have ASD and atrial septal aneurysm but cva presumably 2/2 a fib. continue antiplatelet, holding AC for at least 14 days post cva. Continue asa/statin. # paroxysmal afib: on personal review of ecg now noted to be in NSR. Will need to start AC but as above plan will be for at least 14 days post cva. # liver cyst: recent biopsy and noted to be benign # anemia: has been stable, would recommend outpatient colonoscopy if has not had one yet # hypothyroid: continue levothyroxine DC to rehab Meds: see EHR needs to have anticoagulation initiated within 14 days of infarctin > 35 min spent in dc more than half in coordination of care
--- NOTE | 2017-08-14 10:29 | ASMTCMCOM ---
CM Note CM Note Notes: Pt medically stable for d/c to [facility] inpatient rehab. Dgr Jesenia will transport pt at 12:30. Orders obtained via [employer]. JOSE Ruano to call report. Date Signed: 08/14/2017 10:29 AM Electronically Signed By:ELSA Paz
[2017-08-14 11:40] VITALS: BP 101/69; TEMP 97.9
[2017-08-14 11:48] VITALS: PULSE 99; O2SAT 109
--- NOTE | 2017-08-14 14:38 | ASDISCHSUM ---
Discharge Information Plan Status:Inpatient Rehab Medically Cleared to Leave: Discharge Date:08/14/2017 01:08 PM CM D/C Disposition:[facility] Acute ADT D/C Disposition:Retirement Facility Projected Discharge Date:08/14/2017 01:08 PM Transportation at D/C:Wheelchair Van Discharge Delay Reason: Follow-Up Date:08/14/2017 01:08 PM Discharge Slot: Final Diagnosis:Acute stroke Placement Information Patient Contact Information Contact Name:DAVIDA Relationship:Daughter Address: City: [facility] Phone: State/Zip Code: Email: Financial Information Financial Class: Primary Plan Desc:MEDICARE INPATIENT Primary Plan Number:[id number] Secondary Plan Desc:[employer]/MDR SUPPLEMENT Secondary Plan Number:[id number] Assessment Information [facility] Initial CM Assessment Living Arrangements What is your living Answers: With Child(moreno) arrangement? Who do you live with? Discharge Plan Comments Coordination Status Comments Notes: Reviewed chart re: d/c poc, pt's progress. Per rounds/ MD notes, pt admitted w/ significant R sided CVA. Pt consulted on by [facility], tPA initiated w/ positive results. PT/OT evals pending. Pt lives w/ her dghtr. Per MD notes, pt doing well and will likely be ready for d/c soon. Discharge needs remain TBD. CM will cont to follow. Date Signed: 08/11/2017 05:54 PM Electronically Signed By:Tracy Neville RN [facility] CM Progress Note CM Note CM Note Notes: Patient asleep, CM spoke to her daughter. Daughter semi retired and at home to care for her mother. Patient has two other children in the [place] area. Patient had a large stroke but doing remarkedly well with therapy. Gave daughter the Acute Rehab Folder and explained what they do and what she would need to bring: clothing, personal items, other activities when not in therapy. Daughter to contact Kaye Honeycutt for a visit. Date Signed: 08/13/2017 05:44 PM Electronically Signed By:Seema Handley LCSW [facility] CM Progress Note CM Note CM Note Notes: Pt medically stable for d/c to [facility]hab[facility] Orders obtained via [employer]. JOSE Ruano to call report. Date Signed: 08/14/2017 10:29 AM Electronically Signed By:ELSA Paz Intervention Information Intervention Type:*IM-Signed Date of Service:08/14/2017 11:38 AM Patient Type:Inpatient Staff Member:Olena Koenig Hours: Discipline: Severity: Comment:
== END 2017-08-14 13:08 | DRG 62 ==
LOC: F2N 15:49 → F3N 08-13 18:06
PROVIDERS: ADMIT Internal Medicine; ATTEND Internal Medicine
DX: I63.411 Cerebral infarction due to embolism of right middle cerebral artery (principal); G81.94 Hemiplegia, unspecified affecting left nondominant side; H53.462 Homonymous bilateral field defects, left side; R41.4 Neurologic neglect syndrome; I48.0 Paroxysmal atrial fibrillation; D64.9 Anemia, unspecified; E03.9 Hypothyroidism, unspecified; Q21.1 Atrial septal defect; K76.89 Other specified diseases of liver; D32.0 Benign neoplasm of cerebral meninges; I10 Essential (primary) hypertension; Z86.73 Personal history of transient ischemic attack (TIA), and cerebral infarction without residual deficits; Z23 Encounter for immunization
CPT/HCPCS: 82947-QW; 92507-GN; 92523-GN; 92610-GN; 97116-GP; 97161-GP; 97166-GO; 97535-GO; G0008; G8978-GP-CI; G8979-GP-CI; G8987-GO-CK; G8988-GO-CI; G8989-GO-CI; G8996-GN-CH; G8997-GN-CH; G9165-GN-CK; G9166-GN-CJ; G9167-GN-CK; J1650; J2250; J2310; J2405; J2997; J3010; Q9967

== ENCOUNTER 2017-08-14 13:43 | Inpatient (IN) | payer OTHER, MEDICARE ==
[2017-08-14] MEDS ORDERED: BISACODYL 10 MG SUPP PR PRN (14:23)
--- NOTE | 2017-08-14 15:23 | PDOREHIP ---
Admission [facility] - Admission - 3 Day Assessment Period Admission Date/Day 1: 08/14/17 Day 2: 08/15/17 Day 3: 08/16/17 - Active Diagnoses Comorbidities and Co-existing Conditions at Admission: 47418. None of the Above - Skin Conditions Unhealed Pressure Ulcer (1 or more/Stage 1 or >)-Admission: 0. No
--- NOTE | 2017-08-14 15:34 | GHP ---
[f rep st] HISTORY AND PHYSICAL POST ADMISSION PHYSICIAN EVALUATION AND REHABILITATION TREATMENT PLAN DATE OF ADMISSION: 08/14/2017 DATE OF EVALUATION: 08/14/2017 TIME OF EVALUATION: 1415. REFERRING FACILITY: [facility]. IMPAIRMENT GROUP: 1.1. DATE OF ONSET: 08/10/2017 REFERRING PHYSICIAN: Johnna Lovelace MD. CONSULTING PHYSICIANS: She was seen in consultation by Pulmonary Critical Care , Dr. Ruiz, and Neurology, Dr. Martinez. REHABLITATION DIAGNOSIS: Cerebrovascular accident with left homonymous hemianopia ETIOLOGIC DIAGNOSIS: Left body involvement (right brain). HISTORY OF PRESENT ILLNESS: This patient was admitted to the [facility] on 08/10/2017 with left-sided weakness, left facial droop, left homonymous hemianopia and left neglect. She received thrombolytics in the hospital and was admitted to the ICU for close monitoring. She had considerable improvement with nearly complete motor recovery on the left upper and lower extremities, but she continues to have a left homonymous hemianopia and possibly a left neglect. In the hospital, she was found to be in atrial fibrillation, she had anemia, and an echocardiogram showed an intraatrial septal aneurysm with a possible patent foramen ovale. MRI of the brain, after thrombolytics, showed a large right MCA distribution ischemic infarct involving the temporal and occipital lobes with associated edema. OTHER LABORATORIES AND STUDIES DURING STAY: She had anemia when she was admitted with a hemoglobin of 11.9 and hematocrit of 35. This subsequently stabilized, and on 08/12/2017, her hemoglobin was 9.9 and hematocrit was 32.1. INR was slightly prolonged at 1.17. Renal function and electrolytes were normal. Hemoglobin A1c was 5.7. Liver function tests revealed a slightly low albumin at 2.6 and otherwise were within normal limits. Lipid panel showed a low cholesterol at 112; her LDL was also low at 67, and her HDL was low at 32. She was taking aspirin prior to the stroke at 81 mg daily; this was increased to 325 mg daily. Atorvastatin was begun. She had constipation which was treated with laxatives. She was working with therapies and appropriate for inpatient rehabilitation. PRECAUTIONS: She is a fall risk and she has aspiration precautions. ACTIVE COMORBIDITIES: She has no active tier 1, tier 2, or tier 3 comorbidities. PAST MEDICAL HISTORY: 1. Liver cysts. 2. Atrial fibrillation, just discovered in the past week. 3. Hypothyroidism. 4. Transient ischemic attacks. PAST SURGICAL HISTORY: Hysterectomy. ALLERGIES: Listed to clopidogrel, penicillins, and prednisone. PRE-HOSPITAL MEDICATIONS: 1. Aspirin 81 mg p.o. daily. 2. Levothyroxine 75 mcg p.o. daily. 3. Multivitamin daily. ADMISSION MEDICATIONS: 1. Aspirin 325 mg p.o. daily. 2. Atorvastatin 40 mg p.o. daily. 3. Levothyroxine 75 mcg p.o. daily. 4. Multivitamin 1 p.o. daily. 5. Polyethylene glycol daily p.r.n. 6. Senna/docusate 1-2 tabs p.o. b.i.d. FAMILY HISTORY: Noncontributory. PSYCHOSOCIAL HISTORY: She is a . She lives with her daughter in [place]. She had a career at [employer], as did her . She was involved in education. Her in 1990. She is a nonsmoker and does not use alcohol. REVIEW OF SYSTEMS: She is aware of a vision deficit on the left side. She denies difficulty swallowing, or weakness, numbness or tingling of the extremities. She has no headache. She denies fevers and chills. She denies recent weight gain and weight loss. She denies nausea, vomiting, and diarrhea. Constipation has been resolved with laxatives in the hospital. She denies dysuria and urinary frequency. She denies joint swelling and joint pain. She does not have chest pain, cough, or dyspnea. She denies dysuria and urinary frequency. Otherwise, a 10-point review of systems is negative. PHYSICAL EXAMINATION: VITAL SIGNS: Blood pressure is 131/70, heart rate is 76 , respiratory rate is 16, oxygen saturation is 98% in room air, temperature is not recorded in the chart at present. Her weight is 46.2 kg for a body mass index of 18.6. GENERAL: A well-nourished, well-developed thin woman, who appears her chronologic age, cooperative, and in no acute distress. HEENT: Extraocular movements are intact but for a deficit to convergence on the left eye. Pupils are equal, round, and reactive to light. Mucous membranes are moist. Dentition is in good condition. She has a crowded airway, Mallampati class 3. NECK: Supple. HEART: Irregular rhythm. No murmurs, rubs, or gallops noted. LUNGS: Clear to auscultation bilaterally. ABDOMEN: Soft, nontender, nondistended with normoactive bowel sounds and no hepatosplenomegaly. EXTREMITIES: No cyanosis, clubbing, or edema. Radial and dorsalis pedis pulses are 2+ bilaterally. Her left great toe crosses under the 2nd toe. Her toenails are long and somewhat dystrophic. She has significant calluses under the left forefoot. NEUROLOGIC: She is alert and oriented x3. Cranial nerves 2 through 12 are grossly intact. No focal weakness. Sensation overall is intact to light touch, but she has extinguishing of sensation in the left lower extremity to double simultaneous stimulation. Deep tendon reflexes are overall within normal limits. There does not appear to be ataxia; movements appear to be smooth. IMPRESSION: This patient is an 81-year-old woman with recently diagnosed atrial fibrillation, who had not yet been started on anticoagulation and who unfortunately suffered a stroke. It was however, amenable, to thrombolysis with tPA, and she has recovered considerable strength in her left upper and lower extremities. She does have some sensory abnormalities on the left with extinguishing to double simultaneous stimulation, and she has a left homonymous hemianopia. She is appropriate for inpatient rehabilitation with functional deficits involving activities of daily living as well as mobility. She is needing supervision with meals and has need for Speech and Language Pathology, as well. She needs nursing care regarding fall risk, bowel and bladder, skin integrity, medication administration, and medication education. She needs the care of a physician regarding anticoagulation, including DVT risk and atrial fibrillation. Her goal is to complete a rehabilitation stay and then return home with her daughter and supportive services. For a safe discharge, she will need to achieve independence with bed mobility and grooming, and it is expected she will have modified independence for transfers, toileting, and ambulation with the least restrictive device. She may need supervision for bathing for safety. She and her family will need education regarding her deficits and proper use of equipment, as well as compensatory strategies. She will have therapy with Physical Therapy, Occupational Therapy, and Speech and Language Pathology for 60 minutes per day per discipline on 5-7 days per week. Her expected duration of stay is 5-7 days. It is anticipated that, upon discharge, she will continue to benefit from outpatient therapy including occupational therapy, speech therapy, and physical therapy. She also will benefit from a stroke support group. ASSESSMENT AND PLAN: 1. Ischemic stroke on 08/10/2017 in the right middle cerebral artery distribution, involving the temporal and occipital lobes, status post thrombolysis with a left homonymous hemianopia and debility. PT and OT to optimize mobility, activities of daily living, and for compensatory strategies regarding the left visual field loss. 2. Possible dysphagia and possible cognitive involvement from the stroke to be assessed and treated per Speech and Language Pathology. 3. Atrial fibrillation is the likely etiology of the stroke. Continue aspirin 325 mg daily for now. The advice of Neurology was to initiate anticoagulation 14 days after the stroke or approximately August 24, 2017. 4. Secondary prophylaxis. She has been started on atorvastatin, and this will be continued. 5. Hypothyroidism. Continue levothyroxine. 6. Anemia, unclear etiology. If she is asymptomatic, this can be further evaluated by primary care after her discharge. However, we will recheck prior to her discharge as she will be starting anticoagulation, and it will be useful to have a baseline value and confirmation that anemia has been improving since her hospitalization. 7. Constipation. Continue laxatives. 8. Prophylaxis. Report from physical therapy in the hospital is that she had ambulated 150 feet. Will, however, continue enoxaparin until it is evident that she is has sufficient mobility to have reduced risk of deep venous thrombosis. There is no need for gastrointestinal prophylaxis. 9. Followup: She will follow up with her primary care provider, Dr. Clarissa Jaime, after discharge; and she is to follow up with neurologist, Dr. Jem Gonzalez , also shortly after discharge from inpatient rehabilitation. /[id number]/MODL MTDD
[2017-08-14] MEDS: AQUAPHOR OINTMENT 3.5 OZ JAR TP SCH ×2 (18:39→21:51)
[2017-08-14] MEDS: SENNOSIDES/DOCUSATE SODIUM TAB PO SCH (22:31)
[2017-08-14] MEDS: traZODone 50 MG TAB PO PRN (22:59)
[2017-08-15] MEDS: LEVOTHYROXINE 75 MCG TAB PO SCH (07:00)
[2017-08-15] MEDS: MULTIVITAMINS 1 EACH TAB PO SCH (08:38)
[2017-08-15] MEDS: ASPIRIN EC 325 MG TAB PO SCH (08:38)
[2017-08-15] MEDS: ATORVASTATIN CALCIUM 40 MG TAB PO SCH (08:38)
[2017-08-15] MEDS: SENNOSIDES/DOCUSATE SODIUM TAB PO SCH ×2 (08:39→20:32)
[2017-08-15] MEDS ORDERED: Herbals/Supplements -Info Only PO SCH (09:00)
[2017-08-15] MEDS: ENOXAPARIN 40 MG/0.4 ML SYR SC SCH (10:37)
[2017-08-15] MEDS: AQUAPHOR OINTMENT 3.5 OZ JAR TP SCH ×3 (10:38→20:33)
--- NOTE | 2017-08-15 11:38 | SOAPPROG ---
SOAP Progress Note Assessment/Plan: Assessment: 81 yo F s/p iIschemic stroke on 08/10/2017 in the right middle cerebral artery distribution, involving the temporal and occipital lobes, status post thrombolysis with a left homonymous hemianopia and debility. * Left homonymous hemianopsia and resulting debility. PT and OT to optimize mobility, activities of daily living, and for compensatory strategies regarding the left visual field loss. * Possible dysphagia and possible cognitive involvement from the stroke to be assessed and treated per Speech and Language Pathology. * Atrial fibrillation is the likely etiology of the stroke. Continue aspirin 325 mg daily for now. The advice of Neurology was to initiate anticoagulation 14 days after the stroke or approximately August 24, 2017. * Secondary prophylaxis. Continue atorvastatin. * Insomnia. Responded to trazodone 25 mg. Continue trazodone p.r.n.. * Hypothyroidism. Continue levothyroxine. * Anemia, unclear etiology. Recheck before discharge, for baseline prior to starting anticoagulation. Consider further evaluation including possible colonoscopy after discharge. * Prophylaxis. Ambulating greater than 150 feet. Discontinue enoxaparin starting 08/16/2017. There is no need for gastrointestinal prophylaxis. Followup: She will follow up with her primary care provider, Dr. Clarissa Jaime, after discharge; and she is to follow up with neurologist, Dr. Jem Gonzalez, also shortly after discharge from inpatient rehabilitation. 08/15/17 11:48 Subjective: No complaints. Has some difficulty attaining sleep last night which responded to a low-dose of trazodone. Not in pain, no cough, dyspnea, fevers, chills. Objective: Vital Signs Temp Pulse Resp BP Pulse Ox 36.9 C 65 16 100/61 99 08/15/17 06:56 08/15/17 06:56 08/15/17 06:56 08/15/17 06:56 08/15/17 06:56 08/14/17 08/15/17 08/16/17 05:59 05:59 05:59 Intake Total 300 240 Output Total 250 Balance 50 240 Physical Exam - Physical Exam General Appearance: WD/WN, alert, no apparent distress Respiratory: normal breath sounds, No crackles, No rhonchi, No wheezing Cardiac/Chest: regular rate, rhythm, No diastolic murmur, No systolic murmur Skin: normal color, warm/dry Neuro/Psych: alert, normal mood/affect, oriented x 3, other (Observed ambulating in the lerner with physical therapy, using front wheeled walker, standby assist per PT has assistance to avoid objects on the left.) ICD10 Worksheet Patient Problems: Problems Problem Status Onset Acute ischemic stroke Acute Received intravenous tissue plasminogen activator (t-PA) in emergency department Acute
[2017-08-15] MEDS: traZODone 50 MG TAB PO PRN (20:33)
[2017-08-16] MEDS: LEVOTHYROXINE 75 MCG TAB PO SCH (06:33)
[2017-08-16] MEDS: ENOXAPARIN 40 MG/0.4 ML SYR SC SCH (07:58)
[2017-08-16] MEDS: ASPIRIN EC 325 MG TAB PO SCH (08:07)
[2017-08-16] MEDS: SENNOSIDES/DOCUSATE SODIUM TAB PO SCH ×2 (08:08→20:24)
[2017-08-16] MEDS: MULTIVITAMINS 1 EACH TAB PO SCH (08:09)
[2017-08-16] MEDS: ATORVASTATIN CALCIUM 40 MG TAB PO SCH (08:09)
[2017-08-16] MEDS: AQUAPHOR OINTMENT 3.5 OZ JAR TP SCH ×2 (09:56→20:24)
[2017-08-16] MEDS ORDERED: PNEUMOC 13-VAL CONJ-DIP CRM/PF 0.5 ML SYR IM ONE (13:22)
[2017-08-16] MEDS ORDERED: PNEUMOCOCCAL 0.5ML VACCINE VIAL IM ONE (16:00)
[2017-08-16] MEDS: traZODone 50 MG TAB PO PRN (20:13)
[2017-08-17] MEDS: SENNOSIDES/DOCUSATE SODIUM TAB PO SCH ×2 (04:32→20:46)
[2017-08-17] MEDS: LEVOTHYROXINE 75 MCG TAB PO SCH (04:32)
[2017-08-17] MEDS: ENOXAPARIN 40 MG/0.4 ML SYR SC SCH (10:15)
[2017-08-17] MEDS: ATORVASTATIN CALCIUM 40 MG TAB PO SCH (10:15)
[2017-08-17] MEDS: ASPIRIN EC 325 MG TAB PO SCH (10:15)
[2017-08-17] MEDS: MULTIVITAMINS 1 EACH TAB PO SCH (10:16)
[2017-08-17] MEDS: POLYETHYLENE GLYCOL 3350 17 GM PKT PO PRN (10:16)
[2017-08-17] MEDS: AQUAPHOR OINTMENT 3.5 OZ JAR TP SCH ×2 (13:08→20:52)
--- NOTE | 2017-08-17 13:21 | SOAPPROG ---
KIMBERLY Progress Note Assessment/Plan: Assessment: 81 yo F s/p ischemic stroke on 08/10/2017 in the right middle cerebral artery distribution, involving the temporal and occipital lobes, status post thrombolysis with a left homonymous hemianopia and debility. * Left homonymous hemianopsia and resulting debility. Initial functional independence measure 102. She has walked greater than 500 feet with a quad cane , progressing with physical therapy to ambulating with no device. She has required only standby assist for activities of daily living. She has climbed 18 stairs with 2 rails with standby assist. She is somewhat tentative in her movements due to visual deficit. OT reports a bilateral visual field deficit to confrontation she has difficulty with scanning to midline and she has difficulty with fixation. Continue PT and OT to optimize mobility, activities of daily living, and for compensatory strategies regarding the left visual field loss. * Possible cognitive involvement from the stroke. Deficits noted to auditory processing, to new learning, working memory and repair skills. Continue Speech and Language Pathology. * Atrial fibrillation is the likely etiology of the stroke. Continue aspirin 325 mg daily for now. The advice of Neurology was to initiate anticoagulation 14 days after the stroke or approximately August 24, 2017. * Secondary prophylaxis. Continue atorvastatin. * Insomnia. Responded to trazodone 25 mg. Continue trazodone p.r.n.. * Long dystrophic nails, malposition of left great toe, calluses on plantar feet. Seen today 08/17/2017 by Podiatry. Follow up with Podiatry in 1-2 weeks after discharge. * Hypothyroidism. Continue levothyroxine. * Anemia, unclear etiology. Recheck before discharge, for baseline prior to starting anticoagulation. Consider further evaluation including possible colonoscopy after discharge. * Prophylaxis. Ambulating greater than 150 feet. Discontinue enoxaparin starting 08/16/2017. There is no need for gastrointestinal prophylaxis. Attended staffing, 15 minutes. Discussed with case management, nursing, dietitian, PT, OT, TRACKMOBILE OPERATOR. Has 14 steps that she needs to climb in the house. Daughter works as a hand woven carpet and rug mender and lives with her; she is available much the time to provide assistance will discharge home on 08/20/2017. Will have home PT OT and TRACKMOBILE OPERATOR initially. Follow up with Neuro-Ophthalmology. Follow up with Podiatry. Followup: She will follow up with her primary care provider, Dr. Clarissa Jaime, after discharge; and she is to follow up with neurologist, Dr. Jem Gonzalez, also shortly after discharge from inpatient rehabilitation. 08/17/17 13:16 Subjective: No complaints today. Slept well. Feels like he is making progress. Denies cough, dyspnea, fevers, chills. No pain. Objective: Vital Signs Temp Pulse Resp BP Pulse Ox 36.5 C 60 15 124/76 H 93 08/17/17 06:46 08/17/17 06:46 08/17/17 06:46 08/17/17 06:46 08/17/17 06:46 08/16/17 08/17/17 08/18/17 05:59 05:59 05:59 Intake Total 555 890 240 Output Total 300 Balance 255 890 240 - Time Spent With Patient Time Spent With Patient: Greater than 35 minutes floor time today, including more than 50% of time in coordination of care during staffing meeting and discussion with sand cleaning machine operator Dr. Manzo, and counseling patient. Physical Exam - Physical Exam General Appearance: WD/WN, alert, no apparent distress Respiratory: No respiratory distress, No accessory muscle use Skin: normal color, warm/dry Neuro/Psych: alert, normal mood/affect, oriented x 3 ICD10 Worksheet Patient Problems: Problems Problem Status Onset Acute ischemic stroke Acute Received intravenous tissue plasminogen activator (t-PA) in emergency department Acute
[2017-08-17] MEDS: traZODone 50 MG TAB PO PRN (20:46)
[2017-08-18] MEDS: LEVOTHYROXINE 75 MCG TAB PO SCH (06:22)
[2017-08-18] MEDS: ASPIRIN EC 325 MG TAB PO SCH (09:40)
[2017-08-18] MEDS: MULTIVITAMINS 1 EACH TAB PO SCH (09:41)
[2017-08-18] MEDS: ATORVASTATIN CALCIUM 40 MG TAB PO SCH (09:41)
[2017-08-18] MEDS: AQUAPHOR OINTMENT 3.5 OZ JAR TP SCH ×2 (09:41→22:23)
[2017-08-18] MEDS: SENNOSIDES/DOCUSATE SODIUM TAB PO SCH ×2 (09:44→22:18)
--- NOTE | 2017-08-18 11:50 | SOAPPROG ---
KIMBERLY Progress Note Assessment/Plan: Assessment: 81 yo F s/p ischemic stroke on 08/10/2017 in the right middle cerebral artery distribution, involving the temporal and occipital lobes, status post thrombolysis with a left homonymous hemianopia and debility. * Left homonymous hemianopsia and resulting debility. Initial functional independence measure 102. She has walked greater than 500 feet with a quad cane , progressing with physical therapy to ambulating with no device. She has required only standby assist for activities of daily living. She has climbed 18 stairs with 2 rails with standby assist. She is somewhat tentative in her movements due to visual deficit. OT reports a bilateral visual field deficit to confrontation she has difficulty with scanning to midline and she has difficulty with fixation. Continue PT and OT to optimize mobility, activities of daily living, and for compensatory strategies regarding the left visual field loss. * Possible cognitive involvement from the stroke. Deficits noted to auditory processing, to new learning, working memory and repair skills. Continue Speech and Language Pathology. * Atrial fibrillation is the likely etiology of the stroke. Continue aspirin 325 mg daily for now. The advice of Neurology was to initiate anticoagulation 14 days after the stroke or approximately August 24, 2017. * Secondary prophylaxis. Continue atorvastatin. * Insomnia. Responded to trazodone 25 mg. Continue trazodone p.r.n.. * Long dystrophic nails, malposition of left great toe, calluses on plantar feet. Seen today 08/17/2017 by Podiatry. Follow up with Podiatry in 1-2 weeks after discharge. * Hypothyroidism. Continue levothyroxine. * Anemia, unclear etiology. Recheck before discharge, for baseline prior to starting anticoagulation. Consider further evaluation including possible colonoscopy after discharge. * Prophylaxis. Ambulating greater than 150 feet. Discontinue enoxaparin starting 08/16/2017. There is no need for gastrointestinal prophylaxis. Has 14 steps that she needs to climb in the house. Daughter works as a perpetual inventory clerk and lives with her; she is available much the time to provide assistance will discharge home on 08/20/2017. Will have home PT OT and SNOW MAKER initially. Follow up with Neuro-Ophthalmology. Follow up with Podiatry. Followup: She will follow up with her primary care provider, Dr. Clarissa Jaime, after discharge; and she is to follow up with neurologist, Dr. Jem Gonzalez, also shortly after discharge from inpatient rehabilitation. 08/18/17 11:49 Subjective: No complaints. Slept well. Not in pain. No cough, dyspnea, fevers, chills. Aware of visual deficit but reports she is determined to eventually return to driving. Objective: Vital Signs Temp Pulse Resp BP Pulse Ox 36.6 C 70 16 107/68 96 08/18/17 06:27 08/18/17 06:27 08/18/17 06:27 08/18/17 06:27 08/18/17 06:27 08/17/17 08/18/17 08/19/17 05:59 05:59 05:59 Intake Total 890 1180 120 Output Total 200 Balance 890 980 120 Physical Exam - Physical Exam General Appearance: WD/WN, alert, no apparent distress Respiratory: normal breath sounds, No crackles, No rhonchi, No wheezing Cardiac/Chest: regular rate, rhythm, No diastolic murmur, No systolic murmur Skin: normal color, warm/dry Neuro/Psych: alert, normal mood/affect, oriented x 3, sensory deficit (Visual processing deficit evident while working on visual task with OT.) ICD10 Worksheet Patient Problems: Problems Problem Status Onset Acute ischemic stroke Acute Received intravenous tissue plasminogen activator (t-PA) in emergency department Acute
[2017-08-18] MEDS: traZODone 50 MG TAB PO PRN (22:17)
[2017-08-19] MEDS: LEVOTHYROXINE 75 MCG TAB PO SCH (06:12)
[2017-08-19] MEDS: MULTIVITAMINS 1 EACH TAB PO SCH (08:57)
[2017-08-19] MEDS: SENNOSIDES/DOCUSATE SODIUM TAB PO SCH ×2 (08:57→20:00)
[2017-08-19] MEDS: ASPIRIN EC 325 MG TAB PO SCH (08:57)
[2017-08-19] MEDS: AQUAPHOR OINTMENT 3.5 OZ JAR TP SCH ×2 (08:57→20:03)
[2017-08-19] MEDS: ATORVASTATIN CALCIUM 40 MG TAB PO SCH (08:57)
--- NOTE | 2017-08-19 14:16 | SOAPPROG ---
KIMBERLY Progress Note Assessment/Plan: Assessment: 81 yo F s/p ischemic stroke on 08/10/2017 in the right middle cerebral artery distribution, involving the temporal and occipital lobes, status post thrombolysis with a left homonymous hemianopia and debility. * Left homonymous hemianopsia and resulting debility. Initial functional independence measure 102. She has walked greater than 500 feet with a quad cane , progressing with physical therapy to ambulating with no device. She has required only standby assist for activities of daily living. She has climbed 18 stairs with 2 rails with standby assist. She is somewhat tentative in her movements due to visual deficit. OT reports a bilateral visual field deficit to confrontation she has difficulty with scanning to midline and she has difficulty with fixation. Continue PT and OT to optimize mobility, activities of daily living, and for compensatory strategies regarding the left visual field loss. * Possible cognitive involvement from the stroke. Deficits noted to auditory processing, to new learning, working memory and repair skills. Continue Speech and Language Pathology. * Atrial fibrillation is the likely etiology of the stroke. Continue aspirin 325 mg daily for now. The advice of Neurology was to initiate anticoagulation 14 days after the stroke or approximately August 24, 2017. * Secondary prophylaxis. Continue atorvastatin. * Insomnia. Responded to trazodone 25 mg. Continue trazodone p.r.n.. * Long dystrophic nails, malposition of left great toe, calluses on plantar feet. Seen today 08/17/2017 by Podiatry. Follow up with Podiatry in 1-2 weeks after discharge. * Hypothyroidism. Continue levothyroxine. * Anemia, unclear etiology. Recheck before discharge, for baseline prior to starting anticoagulation. Consider further evaluation including possible colonoscopy after discharge. * Prophylaxis. Ambulating greater than 150 feet. Discontinue enoxaparin starting 08/16/2017. There is no need for gastrointestinal prophylaxis. Has 14 steps that she needs to climb in the house. Daughter works as a carpet mechanic and lives with her; she is available much the time to provide assistance will discharge home on 08/20/2017. Will have home PT OT and GALLERY ASSISTANT initially. Follow up with Neuro-Ophthalmology. Follow up with Podiatry. Followup: She will follow up with her primary care provider, Dr. Clarissa Jaime, after discharge; and she is to follow up with neurologist, Dr. Jem Gonzalez, also shortly after discharge from inpatient rehabilitation. 08/19/17 14:16 Subjective: No complaints. Excited to be going home. Has anxiety regarding beginning warfarin. Wants to continue trazodone for sleep. Objective: Vital Signs Temp Pulse Resp BP Pulse Ox 36.8 C 69 15 120/65 93 08/19/17 05:42 08/19/17 05:42 08/19/17 05:42 08/19/17 05:42 08/19/17 05:42 08/18/17 08/19/17 08/20/17 05:59 05:59 05:59 Intake Total 1180 270 60 Output Total 200 Balance 980 270 60 Physical Exam - Physical Exam General Appearance: WD/WN, alert, no apparent distress Respiratory: No respiratory distress, No accessory muscle use Skin: normal color, warm/dry Neuro/Psych: no motor/sensory deficits, alert, normal mood/affect, oriented x 3 ICD10 Worksheet Patient Problems: Problems Problem Status Onset Acute ischemic stroke Acute Received intravenous tissue plasminogen activator (t-PA) in emergency department Acute
--- NOTE | 2017-08-19 14:29 | PDOREHIP ---
Admission [facility] - Admission - 3 Day Assessment Period Admission Date/Day 1: 08/14/17 Day 2: 08/15/17 Day 3: 08/16/17 Discharge [facility] - Discharge Skin Conditions Unhealed Pressure Ulcer (1 or more/Stage 1 or >)-Discharge: 0. No
[2017-08-19] MEDS: POLYETHYLENE GLYCOL 3350 17 GM PKT PO PRN (14:58)
[2017-08-19] MEDS: traZODone 50 MG TAB PO PRN (20:01)
[2017-08-20] MEDS: LEVOTHYROXINE 75 MCG TAB PO SCH (06:25)
[2017-08-20 06:38] VITALS: BP 118/70; PULSE 71; RESP 16; TEMP 97.5; O2SAT 95
[2017-08-20 07:40] LABS: % IMMATURE GRANULYOCYTES 0.7 % (0.0-1.1); ABSOLUTE IMMATURE GRANULOCYTES 0.04 10^3/uL (0.00-0.10); ADD DIFF? NO; ADD MORPH? NO; ADD SCAN? NO; ATYPICAL LYMPHOCYTE FLAG 10 (0-99); FRAGMENT RBC FLAG 0 (0-99); HEMATOCRIT 31.6 % (38.0-47.0); HEMOGLOBIN 9.8 g/dL (12.6-16.3); LEFT SHIFT FLG 20 (0-99); LIPEMIA HEMOLYSIS FLAG 80 (0-99); MEAN CELL HEMOGLOBIN 26.9 pg (27.9-34.1); MEAN CELL VOLUME 86.8 fL (81.5-99.8); MEAN PLATELET VOLUME 9.1 fL (8.7-11.7); PLATELET CLUMPS FLAG 0 (0-99); PLATELET COUNT 430 10^3/uL (150-400); RED BLOOD CELL COUNT 3.64 10^6/uL (4.18-5.33); RED CELL DISTRIBUTION WIDTH 13.8 % (11.5-15.2)
[2017-08-20] MEDS: ASPIRIN EC 325 MG TAB PO SCH (08:35)
[2017-08-20] MEDS: SENNOSIDES/DOCUSATE SODIUM TAB PO SCH (08:35)
[2017-08-20] MEDS: MULTIVITAMINS 1 EACH TAB PO SCH (08:35)
[2017-08-20] MEDS: ATORVASTATIN CALCIUM 40 MG TAB PO SCH (08:35)
[2017-08-20] MEDS: AQUAPHOR OINTMENT 3.5 OZ JAR TP SCH (11:58)
--- NOTE | 2017-08-20 15:24 | GDS ---
[f rep st] DISCHARGE SUMMARY ADMITTING DIAGNOSIS: Cerebrovascular accident with left homonymous hemianopia. DISCHARGE DIAGNOSES: 1. Cerebrovascular accident with left homonymous hemianopia. 2. Atrial fibrillation. 3. Insomnia. 4. Anemia. CONSULTATIONS: There was a consultation with podiatry, Dr. Manzo. PROCEDURES: There was debridement of nails. COMPLICATIONS: There were none. HISTORY AND HOSPITAL COURSE: This patient came to [facility] inpatient rehabilitation from [facility] where she was admitted on 08/10/2017 with left-sided weakness, left facial droop, left homonymous hemianopsia and left neglect. She received thrombolytics in the hospital and had considerable improvement with near-complete recovery of motor function. However, she continued to have a left homonymous hemianopsia meriting admission to rehabilitation. She was also found to be in atrial fibrillation and had a possible patent foramen ovale. Due to the size of the stroke, which was right MCA distribution, she was not begun on anticoagulation. She was begun on aspirin at 325 mg daily. She had previously been taking 81 mg daily. Additionally, she was started on atorvastatin. Anticoagulation was intended to be started 2 weeks past the stroke or August 24, 2017. She did well in rehabilitation. Her initial functional independence measure was 102, which is consistent with independent living. She had walked more than 500 feet with a quad cane and was progressing towards ambulating with no device. She required only standby assist for activities of daily living. She was able to climb and descend 18 stairs with 2 rails and standby assistance. She had a visual deficit which caused her to be tentative in her movements. Regarding atrial fibrillation, she was continued on aspirin 325 mg daily. She had insomnia, which responded well to 25 mg of trazodone at h.s., and she desired to continue the trazodone. She was noted to have long dystrophic nails as well as malposition of the great toe of the left foot. She was seen by Podiatry for debridement. She had anemia of unclear etiology in the hospital. CBC was rechecked on the day of discharge and her anemia was stable with a hemoglobin of 9.8 and a hematocrit of 31.6. CONDITION UPON DISCHARGE: Good. ACTIVITY: Ad joe, but no driving. DIET: Regular. DATE OF NEXT APPOINTMENT,: She has followup with neurologist, Dr. Jem Gonzalez in approximately a week, with manager audit, Dr. Jimbo Hill, for neuro- ophthalmologic evaluation in approximately 1 week, with primary care provider, Dr. Clarissa Jaime in approximately 1 week, and with market development specialist, Dr. Gurinder Manzo, in approximately 2 weeks. MEDICATIONS AT DISCHARGE: 1. Trazodone 25 mg p.o. at bedtime. 2. Warfarin 5 mg to begin on 08/24/2017. 3. Aspirin 325 mg p.o. daily until therapeutic on warfarin. 4. Polyethylene glycol 17 g daily p.r.n. 5. Senna/docusate 1-2 tablets p.o. twice daily. 6. Atorvastatin 40 mg p.o. daily. 7. Levothyroxine 75 mcg p.o. daily. ISSUES TO BE ADDRESSED FOLLOWUP: 1. Functional status with left homonymous hemianopsia. She will continue home PT, OT, and MACHINE FEEDER RAW STOCK initially. She will follow up with neuro-ophthalmology, and she can also follow up with her primary care provider regarding how she is doing functionally. 2. Anemia of unclear etiology. She should have further evaluation per primary care, including iron studies, followup CBC, and consider colonoscopy. 3. Foot care to follow up with market development specialist, Dr. Manzo. /[id number]/MODL MTDD
--- NOTE | 2017-08-21 11:58 | GCON ---
[f rep st] CONSULTATION DATE OF CONSULTATION: 08/17/2017 CONSULTING SERVICE: Rehab Facility at [facility] on [address] from Dr. Lazaro Maria. DIAGNOSIS FOR ADMISSION INTO THE REHAB FACILITY: Cerebrovascular accident. HISTORY OF PRESENT ILLNESS: The patient was admitted through the emergency department at [facility] on 08/10/2017 for left-sided weakness. The patient was treated for an acute stroke in the ICU. Sara gibson was referred to rehab facility shortly thereafter after stabilization. The patient was referred to the podiatry service for preventative nail and callus care by Dr. Lazaro Maria. MEDICATIONS UPON ADMISSION: MiraLAX, aspirin 325 mg, Senokot, Lipitor 40 mg, and levothyroxine 75 mc g. The patient was recently added trazodone as well as warfarin. The patient will not start warfari n until 08/24/2017. PAST MEDICAL HISTORY: Significant for AFib, hypothyroidism, as well as a history of TIAs. PAST SURGICAL HISTORY: Hysterectomy. ALLERGIES: Penicillins, prednisone, and clopidogrel. FAMILY HISTORY: Noncontributory. REVIEW OF SYSTEMS: A 12-point review of systems was reviewed and is negative aside from constipation that was relieved with a number of different laxatives. PHYSICAL EXAMINATION: GENERAL: This is a well-nourished, slightly cachectic woman, who is in no acu te distress and is well oriented. LOWER EXTREMITIES: The patient has pulses, both dorsalis pedis an d posterior tibial pulses, bilaterally. I cannot assess for any acute signs of infection to the bila teral feet and ankles. She does have markedly thickened and dystrophic bilateral nails 1 through 5 a s well as significant plantar forefoot callosities. There are no open lesions and again no acute sig ns of infection. Nerves are intact grossly bilaterally. Epicritic sensation is intact. Manual musc le testing is also intact in all 4 quadrants and is 5/5. IMPRESSION: This is an 81-year-old woman who was admitted to rehab following a cerebrovascular accid ent. The patient is recovering well, as per her rehab physician. The patient will likely be dischar [facility] home in the next few days. PLAN: 1. Patient is anticoagulated for both a history of acute stroke as well as atrial fibrillation. She should be cautioned regarding her fall risk as well as increased ability to bleed and the complicati ons with this. 2. Onychomycosis. The nails were debrided and reduced without difficulty. 3. Hyperkeratosis, bilateral feet. The patient will follow up in the outpatient clinic for further cutting and paring of lesions. Podiatry does appreciate the consult and [facility] /[id number]/MODL
== END 2017-08-20 14:00 | disposition home or self-care (01) | DRG 57 ==
LOC: BREH 13:43
PROVIDERS: ADMIT Internal Medicine; ATTEND Internal Medicine
PROC: F07M3ZZ Motor Function Treatment of Musculoskeletal System - Whole Body (ICD-10-PCS; principal; 2017-08-14)
PROC: F0636ZZ Communicative/Cognitive Integration Skills Treatment of Neurological System - Whole Body (ICD-10-PCS; principal; 2017-08-14)
PROC: F08Z7ZZ Vocational Activities and Functional Community or Work Reintegration Skills Treatment (ICD-10-PCS; principal; 2017-08-14)
DX: I69.354 Hemiplegia and hemiparesis following cerebral infarction affecting left non-dominant side (principal); I69.398 Other sequelae of cerebral infarction; I48.91 Unspecified atrial fibrillation; D64.9 Anemia, unspecified; I25.3 Aneurysm of heart; H53.462 Homonymous bilateral field defects, left side; E03.9 Hypothyroidism, unspecified; K59.00 Constipation, unspecified; G47.00 Insomnia, unspecified; B35.1 Tinea unguium; L57.0 Actinic keratosis
CPT/HCPCS: 92507-GN; 92522-GN; 92610-GN; 97112-GP; 97116-GP; 97162-GP; 97165-GO; 97530-GO; 97530-GP; 97532-GO; 97535-GO; G0009; J1650

== ENCOUNTER 2017-08-25 17:31 | Emergency (ER) | payer OTHER, MEDICARE ==
[2017-08-25 17:45] VITALS: RESP 18
--- NOTE | 2017-08-25 18:11 | EDPHY ---
H & P Stated Complaint: L wrist pain, michael urine, started coumadin yesterday and worried about rx HPI/ROS: HPI CHIEF COMPLAINT: Left wrist pain, possible discolored urine. HISTORY OF PRESENT ILLNESS: This patient is a 81-year-old female significant past medical history for AFib on Coumadin. She just recently started taking Coumadin 2 days ago. She has had 2 doses. She presents emergency room as she had some right wrist pain that is now resolved she thought maybe this was a medication side effect from the Coumadin. She also noticed that her urine looked darker than normal. She decided come the emergency room to be evaluated for dark urine and pain in her right wrist. She thinks it is from the new medication of Coumadin. She denies any complaints. She started Coumadin for AFib status post CVA. She denies any focal weakness numbness or tingling headache chest pain or shortness of breath at this time. She otherwise feels well. Past Medical History: AFib, recent CVA, recently started Coumadin Past Surgical History: No recent surgery Social History: Lives locally, son and daughter at bedside. Family History: Noncontributory ROS REVIEW OF SYSTEMS: A comprehensive 10 point review of systems is otherwise negative aside from elements mentioned in the history of present illness. Exam Constitutional appears well nontoxic, cachectic appearing, triage nursing summary reviewed, vital signs reviewed, awake/alert. Eyes normal conjunctivae and sclera, EOMI, PERRLA. HENT normal inspection, atraumatic, moist mucus membranes, no epistaxis, neck supple/ no meningismus, no raccoon eyes. Respiratory clear to auscultation bilaterally, normal breath sounds, no respiratory distress, no wheezing. Cardiovascular rate normal, regular rhythm, no murmur, no edema, distal pulses normal. Gastrointestinal soft, non-tender, no rebound, no guarding, normal bowel sounds, no distension, no pulsatile mass. Genitourinary no CVA tenderness. Musculoskeletal right wrist: Full range of motion, there is no evidence of swelling, there is a good pulse. 2+ pulse. Good cap refill. Warm extremity. R extensive arthritic changes to bilateral hands. Good cap refill. Sensation intact. No pain with exam. No pain with range of motion. no midline vertebral tenderness, full range of motion, no calf swelling, no tenderness of extremities, no meningismus, good pulses, neurovascularly intact. Skin pink, warm, & dry, no rash, skin atraumatic. Neurologic awake, alert and oriented x 3, AAOx3, moves all 4 extremities equally, motor intact, sensory intact, CN II-XII intact, normal cerebellar, normal vision, normal speech. Psychiatric normal mood/affect. Heme/Lymph/Immune no lymphadenopathy. Differential Diagnosis: Includes but is not limited to in a particular order urinary tract infection, hematuria, right wrist arthritis Medical Decision Making: Plan for this patient she just started taking Coumadin. She has had 2 doses I do not feel there is reason to check her INR as she has no evidence of bleeding anywhere as per her darker urine will check urinalysis to make sure she is not a UTI or significant hematuria. As for her right wrist she has a normal physical exam. Good cap refill. Good pulse. Full range of motion no significant pain on exam. Re-evaluation: Urinalysis reviewed. Patient does not have any dysuria or urinary frequency. No foul smell. Will send for urine culture. However will not treat at this time. Source: Patient - Personal History Current Tetanus Diphtheria and Acellular Pertussis (TDAP): Unsure - Medical/Surgical History Hx Asthma: No Hx Chronic Respiratory Disease: No Hx Diabetes: No Hx Cardiac Disease: No Hx Renal Disease: No Hx Cirrhosis: No Hx Alcoholism: No Hx HIV/AIDS: No Hx Splenectomy or Spleen Trauma: No Other PMH: Liver Cyst, Minor stroke 04/2017, A-Fib, Hyopthyroid,dehydration in April 2017 in hospital after flus symptoms - Social History Smoking Status: Never smoked Constitutional: Initial Vital Signs Temperature (C) 36.6 C 08/25/17 17:41 Heart Rate 71 08/25/17 17:41 Respiratory Rate 18 08/25/17 17:41 Blood Pressure 150/91 H 08/25/17 17:41 O2 Sat (%) 96 08/25/17 17:41 O2 Delivery Mode Room Air Allergies/Adverse Reactions: Penicillins Allergy (Intermediate, Verified 08/25/17 17:46) Hives clopidogrel [Clopidogrel] Allergy (Unknown, Verified 08/25/17 17:46) Hives prednisone [Prednisone] Allergy (Unknown, Verified 08/25/17 17:46) Hives Home Medications: Medication Instructions Recorded Herbals/Supplements -Info Only 1 ea PO DAILY 08/10/17 Multivitamins [Multivitamin (*)] 1 each PO DAILY 08/10/17 Aspirin EC [Aspirin EC 325 mg (*)] 325 mg PO DAILY tab 08/14/17 Polyethylene Glycol 3350 [Miralax 17 gm PO DAILY PRN pkt 08/14/17 17 gm (*)] Sennosides/Docusate Sodium 1 - 2 tab PO BID tab 08/14/17 [Senokot-S] Atorvastatin Calcium [Lipitor 40 40 mg PO DAILY #30 tab 08/19/17 mg (*)] Levothyroxine [Synthroid 75 mcg 75 mcg PO DAILY06 #30 tab 08/19/17 (*)] Mineral Oil/Pet Hy-Phl [Aquaphor 1 abraham TP BID jar 08/19/17 Ointment (*)] Warfarin Sodium 5 mg PO 16 #30 tablet 08/19/17 traZODone [traZODONE 50MG (*)] 25 mg PO HS PRN #30 tab 08/19/17 Medical Decision Making - Data Points Laboratory Results: 08/25/17 18:35 Urine Color PALE YELLOW Urine Appearance CLEAR Urine pH 5.0 (5.0-7.5) Ur Specific Justice 1.004 (1.002-1.030) Urine Protein NEGATIVE (NEGATIVE) Urine Ketones NEGATIVE (NEGATIVE) Urine Blood 1+ H (NEGATIVE) Urine Nitrate NEGATIVE (NEGATIVE) Urine Bilirubin NEGATIVE (NEGATIVE) Urine Urobilinogen NEGATIVE EU EU (0.2-1.0) Ur Leukocyte Esterase 1+ H (NEGATIVE) Urine RBC 3-5 /hpf H /hpf (0-3) Urine WBC 3-5 /hpf H /hpf (0-3) Ur Epithelial Cells TRACE /lpf /lpf (NONE-1+) Urine Bacteria TRACE /hpf H /hpf (NONE SEEN) Urine Glucose NEGATIVE (NEGATIVE) Departure - Departure Disposition: Home, Routine, Self-Care Clinical Impression: Wrist pain Qualifiers: Laterality: right Qualified Code(s): M25.531 - Pain in right wrist Condition: Good Instructions: Warfarin (By mouth), Arthralgia (ED) Additional Instructions: 1. If develops worsening wrist pain and swelling fever bleeding please return to the emergency room. 2. Follow up with her primary care doctor about your Coumadin checks. 3. Return emergency room if you have worsening symptoms questions or concerns. Referrals: Clarissa Jaime MD [Primary Care Provider] - As per Instructions
[2017-08-25 19:09] LABS: COLOR PALE YELLOW; LEUKOCYTE ESTERASE,URINE 1+ (NEGATIVE); NITRITE,URINE NEGATIVE (NEGATIVE)
[2017-08-25 19:16] LABS: BACTERIA TRACE /hpf (NONE SEEN)
[2017-08-25 19:35] VITALS: BP 123/73; PULSE 65; TEMP 97.7; O2SAT 97
== END 2017-08-25 19:35 | disposition home or self-care (01) ==
DX: M25.531 Pain in right wrist (principal); R82.90 Unspecified abnormal findings in urine; Z79.01 Long term (current) use of anticoagulants; Z79.82 Long term (current) use of aspirin; Z86.73 Personal history of transient ischemic attack (TIA), and cerebral infarction without residual deficits

== ENCOUNTER → 2017-10-30 | Outpatient (CLI) | payer OTHER, MEDICARE | LOC: FIMAGING 13:04 | PROVIDERS: ATTEND Urology | DX: K76.89 Other specified diseases of liver (principal); N28.89 Other specified disorders of kidney and ureter | CPT/HCPCS: 74160; Q9967 ==

== ENCOUNTER → 2018-01-16 | Outpatient (CLI) | payer OTHER, MEDICARE | LOC: FIMAGING 13:59 | PROVIDERS: ATTEND Internal Medicine | DX: K76.89 Other specified diseases of liver (principal); N28.89 Other specified disorders of kidney and ureter ==

== ENCOUNTER 2018-01-22 07:45 | Day surgery (SDC) | payer OTHER, MEDICARE ==
[2018-01-22] MEDS ORDERED: GLUCAGON HCL 1 MG VIAL IVP PRN (07:56)
[2018-01-22] MEDS ORDERED: MEPERIDINE 25 MG/ML SYR IVP PRN (07:56)
[2018-01-22] MEDS ORDERED: FLUMAZENIL 0.5 MG/5 ML MDV IVP PRN (07:56)
[2018-01-22] MEDS ORDERED: NALOXONE HCL 0.4 MG/ML INJ IVP PRN (07:56)
[2018-01-22] MEDS ORDERED: ALTEPLASE 2 MG VIAL IVP PRN (07:56)
[2018-01-22] MEDS ORDERED: fentaNYL 100 MCG/2 ML INJ IVP PRN (07:56)
[2018-01-22] MEDS ORDERED: PROTAMINE SULFATE 50 MG/5 ML VIAL IVP PRN (07:56)
[2018-01-22] MEDS ORDERED: HEPARIN 10,000 UNIT/10 ML MDV (1,000 UNIT/ML) IVP PRN (07:56)
[2018-01-22] MEDS ORDERED: MIDAZOLAM 2 MG/2 ML VIAL IVP PRN (07:56)
[2018-01-22] MEDS ORDERED: NS 1,000 ML IV SCH (08:00)
[2018-01-22] MEDS ORDERED: NALOXONE HCL 0.4 MG/ML INJ ONE (08:02)
[2018-01-22] MEDS ORDERED: FLUMAZENIL 0.5 MG/5 ML MDV IVP ONE (08:02)
[2018-01-22] MEDS ORDERED: fentaNYL 100 MCG/2 ML INJ ONE (08:02)
[2018-01-22] MEDS ORDERED: MIDAZOLAM 2 MG/2 ML VIAL ONE (08:03)
[2018-01-22 09:01] VITALS: PULSE 77; RESP 14
[2018-01-22 09:21] LABS: INR 1.26 (0.83-1.16)
--- NOTE | 2018-01-22 10:34 | PDPROPOC ---
Sedation Plan of Care Sedation Plan of Care: vital signs stable, mental status noted, patient educated of risks, benefits, alternatives, patient can tolerate sedation ASA Classification: ASA 3 Planned drugs: fentanyl, midazolam Mallampati Score: Class 2 Mallampati Reference Image: Patient passed 3-3-2 rule?: Yes
[2018-01-22] MEDS ORDERED: ONDANSETRON 4 MG/2 ML VIAL IVP PRN (11:43)
[2018-01-22] MEDS ORDERED: oxyCODONE IR 5 MG TAB PO PRN (11:43)
[2018-01-22 15:03] VITALS: TEMP 97.6
[2018-01-22 15:17] VITALS: BP 142/78; O2SAT 98
== END 2018-01-22 15:20 | disposition home or self-care (01) ==
LOC: FIMAGING 07:45
PROVIDERS: ATTEND Internal Medicine
PROC: 0F913ZZ Drainage of Right Lobe Liver, Percutaneous Approach (ICD-10-PCS; principal; 2018-01-22 11:46)
DX: K76.89 Other specified diseases of liver (principal); R10.9 Unspecified abdominal pain; R31.9 Hematuria, unspecified; E03.9 Hypothyroidism, unspecified; I67.9 Cerebrovascular disease, unspecified; I10 Essential (primary) hypertension; Z86.73 Personal history of transient ischemic attack (TIA), and cerebral infarction without residual deficits; Z79.01 Long term (current) use of anticoagulants; Z79.82 Long term (current) use of aspirin
CPT/HCPCS: J2250; J2310; J2405; J3010

== ENCOUNTER → 2019-04-18 | Outpatient (CLI) | payer OTHER, MEDICARE | LOC: FIMAGING 07:29 ==

== ENCOUNTER 2019-04-30 09:51 | Day surgery (SDC) | payer OTHER, MEDICARE | END 2019-04-30 17:20 | disposition home or self-care (01) | LOC: FIMAGING 09:51 ==